=== PATIENT | male | born 1960 | race Caucasian/White ===

== ENCOUNTER 2017-01-18 15:18 | Inpatient (IN) | payer OTHER ==
[~2017-01-18] VITALS: Ht 188 cm; Wt 100.0 kg
[~2017-01-18 15:18] MED LIST changes: -CARV3.1260 PO; -COU5 PO; -FURO40TA4 PO; -LISI-313 PO; -RIVA20TA PO
[2017-01-18] MEDS ORDERED: SOD CHLORIDE 0.9% 1,000 ML IV STA (15:33)
--- NOTE | 2017-01-18 16:45 | RADRPT ---
PROCEDURE: US bilateral lower extremity veins. CLINICAL INDICATION: Bilateral leg pain and swelling. TECHNIQUE: Multiple longitudinal and transverse images of the bilateral lower extremity veins were obtained with queen scale and color Doppler imaging. The common femoral vein, femoral vein, and popl iteal vein were evaluated. 2D grayscale measurements with compression sonography, color Doppler, and pulsed Doppler with augmentation. COMPARISON: No prior studies are available for comparison. FINDINGS: The bilateral common femoral, femoral and popliteal veins are normally compressible throughout. Col or flow demonstrates normal filling of the vessels. Normal waveforms are visualized and there is no rmal response to augmentation. IMPRESSION: 1. No evidence of deep vein thrombosis involving either lower extremity. RPTAT: QQ .Guicho Ch MD, MD Date Time Electronically viewed and signed by .Guicho Ch MD, on 01/18/2017 16:44 .R/
--- NOTE | 2017-01-18 16:46 | RADRPT ---
PROCEDURE: XR Chest. CLINICAL INDICATION: Shortness of breath. TECHNIQUE: Single frontal view. COMPARISON: None. FINDINGS: There is scarring or atelectasis in the right upper lobe inferiorly. There is left basilar atelectas is or pneumonia with adjacent left pleural effusion. There is no right pleural effusion. The heart size is normal. There is no pneumothorax. IMPRESSION: 1. Scarring or atelectasis in the right upper lobe inferiorly. 2. Left basilar atelectasis or pneumonia with adjacent left pleural effusion. 3. Otherwise normal chest x-ray. RPTAT: QQ .Guicho Ch MD, MD Date Time Electronically viewed and signed by .Guicho hC MD, on 01/18/2017 16:45 .R/
--- NOTE | 2017-01-18 16:46 | RADRPT ---
PROCEDURE: XR Chest. CLINICAL INDICATION: Shortness of breath. TECHNIQUE: Single frontal view. COMPARISON: None. FINDINGS: There is scarring or atelectasis in the right upper lobe inferiorly. There is left basilar atelectas is or pneumonia with adjacent left pleural effusion. There is no right pleural effusion. The heart size is normal. There is no pneumothorax. IMPRESSION: 1. Scarring or atelectasis in the right upper lobe inferiorly. 2. Left basilar atelectasis or pneumonia with adjacent left pleural effusion. 3. Otherwise normal chest x-ray. RPTAT: QQ .Guicho Ch MD, MD Date Time Electronically viewed and signed by .Guicho Ch MD, on 01/18/2017 16:45 .R/
--- NOTE | 2017-01-18 16:49 | ERD ---
ER Documentation Chief Complaint Chief Complaint TACHYCARDIA FROM SAME DAY SURGERY. NO CP, MILD SOB NOTED. NO DIAPHORESIS HPI 56-year-old man referred to the emergency department for tachycardia he was being evaluated today for possible bilateral lower extremity arterial ischemia and has complaints of recent left knee swelling and discomfort. He states his symptoms began shortly after left total knee arthroplasty performed a few months ago. He complains of palpitations, denies chest pain or shortness of breath, no fevers or chills, no headache or blurry vision, no dizziness, no loss of consciousness, no redness to the knee. Patient states he has a remote history of atrial fibrillation but denies current medication use, denies new medications. ROS All systems reviewed and are negative except as per history of present illness. Medications Home Meds Reported Medications Aspirin (Low Dose Aspirin) 81 Mg Tablet.dr, 81 MG PO DAILY, #30 TAB 01/18/17 Allergies Allergies: Coded Allergies: No Known Allergies (Verified Allergy, Unknown, 01/18/17) PMhx/Soc ? Paroxysmal atrial fibrillation History of Surgery: Yes (LEFT KNEE SX) Anesthesia Reaction: No Hx Neurological Disorder: No Hx Respiratory Disorders: No Hx Cardiac Disorders: Yes (ARRHYTHMIA) Hx Psychiatric Problems: No Hx Miscellaneous Medical Probl: No Hx Alcohol Use: No Hx Substance Use: No Hx Tobacco Use: No Smoking Status: Never smoker FmHx Family History: No diabetes Physical Exam Vitals Vital Signs Date Time Temp Pulse Resp B/P Pulse Ox O2 Delivery O2 Flow Rate FiO2 01/18/17 15:27 98.8 140 21 114/81 98 Physical Exam GENERAL: Well-developed, well-nourished, well-hydrated, in no apparent distress , looks nontoxic in appearance HEENT: Moist mucous membranes, pink conjunctiva, no cervical spine tenderness or step-off deformities, no goiter, no jaundice or icterus, extraocular movements intact without pain. No submandibular induration, and no pharyngeal erythema NEURO: Alert and oriented 3, cranial nerves II through XII intact bilaterally, pupils equal round reactive to light, no focal deficits or facial asymmetry, sensation intact distally Strength 5/5 in upper and lower extremities bilaterally CARDIAC: Tachycardic and regular, no murmurs rubs or gallops LUNGS: Clear bilaterally no wheezing crackles or stridor ABDOMEN: Soft nontender, no guarding, no rigidity, no rebound, no psoas sign no obturator sign. Normoactive bowel sounds SKIN: Warm and dry to touch, no abrasions, contusions, or hematomas, no lacerations, no ecchymosis, no target lesions, and without ulcers EXTREMITIES: No clubbing cyanosis or edema, calves are bilaterally symmetrical, no Homans sign, no popliteal cord sign. Distal pulses equal and bilateral PSYCH: Normal affect without agitation or irritability Result Diagram: 01/18/17 1554 01/18/17 1554 Results 24 hrs Laboratory Tests Test 01/18/17 15:45 01/18/17 15:54 Thyroid Stimulating Hormone (TSH) 6.550MIU/L Free Thyroxine 2.51ng/dl Free Triiodothyronine (T3) pg/mL 4.71pg/ml White Blood Count 6.010^3/ul Red Blood Count 3.4610^6/ul Hemoglobin 12.3g/dl Hematocrit 34.4% Mean Corpuscular Volume 99.4fl Mean Corpuscular Hemoglobin 35.5pg Mean Corpuscular Hemoglobin Concent 35.8g/dl Red Cell Distribution Width 13.7% Platelet Count 80061^3/UL Mean Platelet Volume 10.2fl Neutrophils % 70.5% Lymphocytes % 20.8% Monocytes % 8.0% Eosinophils % 0.2% Basophils % 0.3% Nucleated Red Blood Cells % 0.0/100WBC Neutrophils # 4.210^3/ul Lymphocytes # 1.310^3/ul Monocytes # 0.510^3/ul Eosinophils # 0.010^3/ul Basophils # 0.010^3/ul Nucleated Red Blood Cells # 0.010^3/ul Prothrombin Time 14.6Sec Prothrombin Time Ratio 1.1 INR International Normalized Ratio 1.14 Sodium Level 127mmol/L Potassium Level 4.2mmol/L Chloride Level 93mmol/L Carbon Dioxide Level 27mmol/L Anion Gap 11 Blood Urea Nitrogen 8mg/dl Creatinine 0.88mg/dl Glucose Level 110mg/dl Calcium Level 8.3mg/dl Total Bilirubin 0.8mg/dl Direct Bilirubin 0.00mg/dl Indirect Bilirubin 0.8mg/dl Aspartate Amino Transf (AST/SGOT) 104IU/L Alanine Aminotransferase (ALT/SGPT) 47IU/L Alkaline Phosphatase 94IU/L Troponin I < 0.012ng/ml Total Protein 6.2g/dl Albumin 2.8g/dl Globulin 3.40g/dl Albumin/Globulin Ratio 0.82 Lipase 121U/L Current Medications Medications (Trade) Dose Ordered Sig/Edmond Route PRN Reason Start Time Stop Time Status Last Admin Dose Admin Sodium Chloride (NS) 1,000 ml @ 1,000 mls/hr Q1H STAT IV 01/18/17 15:33 01/18/17 16:32 DC 01/18/17 15:44 Diltiazem HCl (Cardizem Iv) 20 mg ONCE ONCE IV 01/18/17 17:00 01/18/17 17:01 DC 01/18/17 17:10 Procedures/MDM IV line was established patient was placed on quality assurance monitor body rhythm strip revealed a sinus tachycardia at 147 bpm with upright P and T waves. Patient was afebrile EKG performed, read by me revealed a sinus tachycardia at 147 bpm, left axis deviation, right ventricular conduction delay with incarceration of 118 ms, no concerning ST elevations or depressions noted. Bilateral lower extremity arterial Doppler ultrasound was performed arteries were patent, no arterial ischemia or thrombosis was noted. Please refer to radiologist dictation for full report. Bilateral lower extremity venous ultrasound was performed, no deep vein thrombosis was noted. Please refer to radiologist dictation for full report. I administered 1 L normal saline intravenously. CBC and electrolytes were normal, liver function tests were normal, troponin was negative. Continued symptomatic tachycardia and I treated him here with diltiazem 20 mg IV. Repeat EKG was performed post diltiazem therapy revealing a rate controlled 3:1 block atrial flutter at 55 bpm, left axis deviation, right ventricular conduction delay, no concerning ST elevations or depressions noted. This makes his initial EKG much more suspicious for atrial flutter with rapid ventricular rate. Critical Care: Time: 48 minutes, this was time separate from other billable procedures. Treatments/Evaluations: Close monitoring and treatment of unstable vital signs, cardiorespiratory, and neurologic status, while maintaining tight balance of fluid, respiratory, and cardiac interventions. I ordered thyroid panel, patient will be admitted to telemetry setting for continued medical management cardiology consultation. Departure Diagnosis: Primary Impression: Symptomatic tachycardia Additional Impression: Atrial flutter with rapid ventricular response Condition: AB Soto MD Jan 18, 2017 16:49
[2017-01-18] MEDS ORDERED: DILTIAZEM 25 MG INJ IV ONE (17:00)
--- NOTE | 2017-01-18 17:27 | RADRPT ---
PROCEDURE: US bilateral lower extremity arteries. CLINICAL INDICATION: Bilateral leg pain. Claudication that interferes significantly with the saran ent's lifestyle. TECHNIQUE: Multiple longitudinal and transverse images of the bilateral lower extremity arteries w ere obtained with queen scale, pulsed Doppler, and color Doppler imaging. COMPARISON: No prior studies are available for comparison. FINDINGS: Right QUALITY TECHNICIAN:114 cm/sec PSFA:71 cm/sec MSFA:106 cm/sec DSFA:79 cm/sec POP:56 cm/sec VENEER MARKER:79 cm/sec DPA:40 cm/sec Left QUALITY TECHNICIAN:149 cm/sec PSFA:73 cm/sec MSFA:89 cm/sec DSFA:58 cm/sec POP:56 cm/sec VENEER MARKER:75 cm/sec DPA:38 cm/sec The right ankle-brachial index is 1.0 and the left ankle-brachial index is 1.1. There is normal triphasic flow throughout bilaterally. IMPRESSION: 1. Normal bilateral lower extremity arterial Doppler. RPTAT: QQ .Guicho Ch MD, MD Date Time Electronically viewed and signed by .Guicho Ch MD, on 01/18/2017 17:27 .R/
--- NOTE | 2017-01-18 17:27 | RADRPT ---
PROCEDURE: US bilateral lower extremity arteries. CLINICAL INDICATION: Bilateral leg pain. Claudication that interferes significantly with the saran ent's lifestyle. TECHNIQUE: Multiple longitudinal and transverse images of the bilateral lower extremity arteries w ere obtained with queen scale, pulsed Doppler, and color Doppler imaging. COMPARISON: No prior studies are available for comparison. FINDINGS: Right WEDDING DAY COORDINATOR:114 cm/sec PSFA:71 cm/sec MSFA:106 cm/sec DSFA:79 cm/sec POP:56 cm/sec EMD SPECIAL EDUCATION TEACHER:79 cm/sec DPA:40 cm/sec Left WEDDING DAY COORDINATOR:149 cm/sec PSFA:73 cm/sec MSFA:89 cm/sec DSFA:58 cm/sec POP:56 cm/sec EMD SPECIAL EDUCATION TEACHER:75 cm/sec DPA:38 cm/sec The right ankle-brachial index is 1.0 and the left ankle-brachial index is 1.1. There is normal triphasic flow throughout bilaterally. IMPRESSION: 1. Normal bilateral lower extremity arterial Doppler. RPTAT: QQ .Guicho Ch MD, MD Date Time Electronically viewed and signed by .Guicho Ch MD, on 01/18/2017 17:27 .R/
--- NOTE | 2017-01-18 17:27 | RADRPT ---
PROCEDURE: US bilateral lower extremity arteries. CLINICAL INDICATION: Bilateral leg pain. Claudication that interferes significantly with the saran ent's lifestyle. TECHNIQUE: Multiple longitudinal and transverse images of the bilateral lower extremity arteries w ere obtained with queen scale, pulsed Doppler, and color Doppler imaging. COMPARISON: No prior studies are available for comparison. FINDINGS: Right CORPORATE SCHEDULER:114 cm/sec PSFA:71 cm/sec MSFA:106 cm/sec DSFA:79 cm/sec POP:56 cm/sec ADMISSIONS RECRUITER:79 cm/sec DPA:40 cm/sec Left CORPORATE SCHEDULER:149 cm/sec PSFA:73 cm/sec MSFA:89 cm/sec DSFA:58 cm/sec POP:56 cm/sec ADMISSIONS RECRUITER:75 cm/sec DPA:38 cm/sec The right ankle-brachial index is 1.0 and the left ankle-brachial index is 1.1. There is normal triphasic flow throughout bilaterally. IMPRESSION: 1. Normal bilateral lower extremity arterial Doppler. RPTAT: QQ .Guicho Ch MD, MD Date Time Electronically viewed and signed by .Guicho Ch MD, on 01/18/2017 17:27 .R/
--- NOTE | 2017-01-18 19:35 | HP ---
Date/Time of Note Date/Time of Note DATE: 01/18/17 TIME: 19:27 Assessment/Plan VTE Prophylaxis VTE Prophylaxis Intervention: other Assessment/Plan Chief Complaint/Hosp Course 1. A. fib with RVR-resolved status post diltiazem IV Monitor on telemetry overnight 2. Left lower extremity swelling Ultrasound arterial and venous were negative 3. EtOH abuse Cessation advised 4. Recent left total knee arthroplasty Continue aspirin for DVT prophylaxis 5. Hyponatremia IV fluids with normal saline Prophylaxis: Aspirin Problems: HPI/ROS Admit Date/Time Admit Date/Time January 18, 2017 Hx of Present Illness Patient is a 56-year-old man with history of alcohol abuse as well as recent left total knee arthroplasty, patient was at same-day surgery where he was being evaluated today for possible bilateral lower extremity arterial ischemia as he was having complaints of recent left knee swelling and discomfort. He states his symptoms began shortly after left total knee arthroplasty performed a few months ago. At same-day surgery patient reported having palpitations and was found to be in A. fib with RVR, patient was given diltiazem IV 1 and has converted to normal sinus rhythm. Patient remotes history of an arrhythmia, unclear what type. Patient denies any chest pain or shortness of breath at this time. Of note ultrasound arterial as well as venous done today were within normal. ROS Constitutional: improved, no complaints Eyes: no complaints ENT: no complaints Respiratory: no complaints Cardiovascular: no complaints Gastrointestinal: no complaints Genitourinary: no complaints Musculoskeletal: no complaints Skin: no complaints Neurologic: no complaints Endocrine: no complaints Lymphatic: no complaints Psychological: nl mood/affect, no complaints Immunologic: no complaints PMH/Family/Social Past Medical History EtOH abuse and left total knee arthroplasty Family History Significant Family History: no pertinent family hx Social History Alcohol Use: heavy Smoking Status: Former smoker Drug Use: none Exam/Review of Systems Vital Signs Vitals Vital Signs Date Time Temp Pulse Resp B/P Pulse Ox O2 Delivery O2 Flow Rate FiO2 01/18/17 15:27 98.8 140 21 114/81 98 Exam Constitutional: alert, oriented Respiratory: clear to auscultation Cardiovascular: regular rate and rhythm Gastrointestinal: soft, No distended Musculoskeletal: nl extremities to inspection Labs Result Diagram: 01/18/17 1554 01/18/17 1554 CHUCHO KATE Jan 18, 2017 19:35
[2017-01-18] MEDS ORDERED: ONDANSETRON 4 MG INJ IV PRN (20:00)
[2017-01-18] MEDS ORDERED: MAGNESIUM HYDROXIDE 30ML CUP PO PRN (20:00)
[2017-01-18] MEDS ORDERED: DOCUSATE SODIUM 100 MG CAP PO PRN (20:00)
[2017-01-18] MEDS ORDERED: NACL 0.9% 3 ML SYG IV SCH (20:00)
[2017-01-18] MEDS ORDERED: ACETAMINOPHEN 325 MG TAB PO PRN (20:00)
[2017-01-18] MEDS ORDERED: LORAZEPAM 2 MG INJ IV PRN (20:00)
[2017-01-18] MEDS ORDERED: morphine 2 MG INJ IV PRN (20:00)
[2017-01-18] MEDS ORDERED: ZOLPIDEM 5 MG TAB PO PRN (20:00)
[2017-01-18] MEDS: HYDROCODONE/APAP (5/325) TAB PO PRN (20:15)
[2017-01-18 21:00] VITALS: Ht 188 cm; Wt 100.0 kg
[2017-01-18 21:12] VITALS: PULSE 74
[2017-01-18 21:34] VITALS: BP 128/80; RESP 18
[2017-01-18] MEDS ORDERED: LEVOFLOXACIN 500MG/D5W (PMX) 100 ML IVPB SCH (22:00)
[2017-01-18] MEDS ORDERED: IPRATROPIUM (NEB) 0.5 MG/2.5 ML AMP HHN PRN (22:00)
[2017-01-18] MEDS ORDERED: HALOPERIDOL 5 MG INJ IM ONE (22:00)
[2017-01-18] MEDS: SOD CHLORIDE 0.9% 1,000 ML IV SCH (22:36)
[2017-01-19] VITALS (13 sets, daily range): BP systolic 103–128; BP diastolic 59–72; PULSE 58–140; RESP 16–20
[2017-01-19] MEDS: LEVALBUTEROL (NEB) 0.63 MG/3 ML AMP HHN SCH ×6 (01:55→20:33)
[2017-01-19] MEDS ORDERED: METOPROLOL 25 MG TAB PO SCH (02:30)
[2017-01-19] MEDS ORDERED: DILTIAZEM 25 MG INJ IV ONE (02:30)
[2017-01-19] MEDS: METOPROLOL 25 MG TAB PO SCH ×2 (02:53→10:08)
[2017-01-19] MEDS ORDERED: MAGNESIUM SULFATE 3 GM in SOD CHLORIDE 0.9% 100 ML IVPB ONE (03:30)
[2017-01-19] MEDS: SOD CHLORIDE 0.9% 1,000 ML IV SCH ×3 (05:33→21:45)
[2017-01-19] MEDS ORDERED: MAGNESIUM SULFATE 2 GM/50 ML 50 ML IVPB ONE (10:00)
[2017-01-19] MEDS: MULTIVITAMINS 10 ML, THIAMINE 100 MG, FOLIC ACID 1 MG in SOD CHLORIDE 0.9% 1,000 ML IVPB SCH (10:07)
[2017-01-19] MEDS: HYDROCODONE/APAP (5/325) TAB PO PRN ×3 (10:08→23:28)
--- NOTE | 2017-01-19 14:14 | RADRPT ---
Echocardiogram Report Patient Name: SENTHIL ARROYO Gender: Male Date: 1960 Study Date: 19-Jan-2017 Computer Service Technician: Destiny [facility] Location: 5564[address] Ref. Physician: CHUCHO KATE Quality: Adequate Procedures: Transthoracic echocardiogram with complete 2D, M-Mode, and doppler examination. Indications: A.Fib. 2D/M Mode Doppler Measurement Value Normal Ranges Measurement Value Normal Ranges LVIDd 2D 4.6 3.5 - 5.6 cm AV Peak Adrian 1.7 m/sec LVIDs 2D 3.1 2.1 - 4.1 cm AV Peak PG 11.0 mmHg FS 2D 32.2 % LVOT Peak Adrian 1.1 m/sec LVPWd 2D 1.3 0.6 - 1.1 cm LVOT Peak PG 5.0 mmHg IVSd 2D 1.3 0.6 - 1.1 cm MV E Peak Adrian 0.8 m/sec IVS/LVPW 2D 1.0 MV A Peak Adrian 0.5 m/sec AoR Diam 2D 3.4 2.0 - 3.7 cm MV E/A 1.6 LA/Ao 2D 1 0 - 1 MV Decel Time 180 msec EDV 2D 96.7 cm3 MV E/A 1.6 ESV 2D 30.1 cm3 TR Peak Adrian 2.2 m/sec LA Dimen 2D 4.1 2.3 - 4.0 cm TR Peak PG 19.0 mmHg RVSP 22.0 mmHg Findings Left Ventricle: Normal left ventricular cavity size. Mild concentric left ventricular hypertrophy. Mild global left ventricular systolic dysfunction. Ejection fraction is visually estimated at 4045 %. Abnormal Diastolic Function. Right Ventricle: Normal right ventricular size. Normal right ventricular systolic function. Left Atrium: There is moderate enlargement of left atrium. Right Atrium: The right atrium is normal in size. Mitral Valve: Mild mitral leaflet calcification. Mild mitral annular calcification. Mild mitral valve regurgitation. Aortic Valve: No significant aortic stenosis. Aortic cusps appear mildly calcified. Trace aortic valve regurgitation. Tricuspid Valve: Normal appearance of the tricuspid valve. Estimated peak PA systolic pressure 22 mmHg. There is trace tricuspid regurgitation. Pulmonic Valve: Pulmonic valve not well visualized. There is trace pulmonic regurgitation. Pericardium: Normal pericardium with no significant pericardial effusion. Aorta: Normal aortic root. IVC: Normal size and normal respiratory collapse consistent with normal right atrial pressure. Conclusions 1.The left ventricle is normal in size with mildly to moderately reduced systolic function. 2.Estimated left ventricular ejection fraction of 40-45%. There is global hypokinesis. 3.Moderate left atrial enlargement. Electronically Signed By: Jamal Nance 19-Jan-2017 14:13:32 -0700 Patient Name: SENTHIL ARROYO Study Date: 19-Jan-2017 [id number]
--- NOTE | 2017-01-19 14:14 | RADRPT ---
Echocardiogram Report Patient Name: SENTHIL ARROYO Gender: Male Date: 1960 Study Date: 19-Jan-2017 Boom Man: Destiny [facility] Location: 55[address] Ref. Physician: CHUCHO KATE Quality: Adequate Procedures: Transthoracic echocardiogram with complete 2D, M-Mode, and doppler examination. Indications: A.Fib. 2D/M Mode Doppler Measurement Value Normal Ranges Measurement Value Normal Ranges LVIDd 2D 4.6 3.5 - 5.6 cm AV Peak Adrian 1.7 m/sec LVIDs 2D 3.1 2.1 - 4.1 cm AV Peak PG 11.0 mmHg FS 2D 32.2 % LVOT Peak Adrian 1.1 m/sec LVPWd 2D 1.3 0.6 - 1.1 cm LVOT Peak PG 5.0 mmHg IVSd 2D 1.3 0.6 - 1.1 cm MV E Peak Adrian 0.8 m/sec IVS/LVPW 2D 1.0 MV A Peak Adrian 0.5 m/sec AoR Diam 2D 3.4 2.0 - 3.7 cm MV E/A 1.6 LA/Ao 2D 1 0 - 1 MV Decel Time 180 msec EDV 2D 96.7 cm3 MV E/A 1.6 ESV 2D 30.1 cm3 TR Peak Adrian 2.2 m/sec LA Dimen 2D 4.1 2.3 - 4.0 cm TR Peak PG 19.0 mmHg RVSP 22.0 mmHg Findings Left Ventricle: Normal left ventricular cavity size. Mild concentric left ventricular hypertrophy. Mild global left ventricular systolic dysfunction. Ejection fraction is visually estimated at 4045 %. Abnormal Diastolic Function. Right Ventricle: Normal right ventricular size. Normal right ventricular systolic function. Left Atrium: There is moderate enlargement of left atrium. Right Atrium: The right atrium is normal in size. Mitral Valve: Mild mitral leaflet calcification. Mild mitral annular calcification. Mild mitral valve regurgitation. Aortic Valve: No significant aortic stenosis. Aortic cusps appear mildly calcified. Trace aortic valve regurgitation. Tricuspid Valve: Normal appearance of the tricuspid valve. Estimated peak PA systolic pressure 22 mmHg. There is trace tricuspid regurgitation. Pulmonic Valve: Pulmonic valve not well visualized. There is trace pulmonic regurgitation. Pericardium: Normal pericardium with no significant pericardial effusion. Aorta: Normal aortic root. IVC: Normal size and normal respiratory collapse consistent with normal right atrial pressure. Conclusions 1.The left ventricle is normal in size with mildly to moderately reduced systolic function. 2.Estimated left ventricular ejection fraction of 40-45%. There is global hypokinesis. 3.Moderate left atrial enlargement. Electronically Signed By: Jamal Nance 19-Jan-2017 14:13:32 -0700 Patient Name: SENTHIL ARROYO Study Date: 19-Jan-2017 [id number]
--- NOTE | 2017-01-19 14:14 | RADRPT ---
Echocardiogram Report Patient Name: SENTHIL ARROYO Gender: Male Date: 1960 Study Date: 19-Jan-2017 Wire Mill Rover: Destiny [facility] Location: [address] Ref. Physician: CHUCHO KATE Quality: Adequate Procedures: Transthoracic echocardiogram with complete 2D, M-Mode, and doppler examination. Indications: A.Fib. 2D/M Mode Doppler Measurement Value Normal Ranges Measurement Value Normal Ranges LVIDd 2D 4.6 3.5 - 5.6 cm AV Peak Adrian 1.7 m/sec LVIDs 2D 3.1 2.1 - 4.1 cm AV Peak PG 11.0 mmHg FS 2D 32.2 % LVOT Peak Adrian 1.1 m/sec LVPWd 2D 1.3 0.6 - 1.1 cm LVOT Peak PG 5.0 mmHg IVSd 2D 1.3 0.6 - 1.1 cm MV E Peak Adrian 0.8 m/sec IVS/LVPW 2D 1.0 MV A Peak Adrian 0.5 m/sec AoR Diam 2D 3.4 2.0 - 3.7 cm MV E/A 1.6 LA/Ao 2D 1 0 - 1 MV Decel Time 180 msec EDV 2D 96.7 cm3 MV E/A 1.6 ESV 2D 30.1 cm3 TR Peak Adrian 2.2 m/sec LA Dimen 2D 4.1 2.3 - 4.0 cm TR Peak PG 19.0 mmHg RVSP 22.0 mmHg Findings Left Ventricle: Normal left ventricular cavity size. Mild concentric left ventricular hypertrophy. Mild global left ventricular systolic dysfunction. Ejection fraction is visually estimated at 4045 %. Abnormal Diastolic Function. Right Ventricle: Normal right ventricular size. Normal right ventricular systolic function. Left Atrium: There is moderate enlargement of left atrium. Right Atrium: The right atrium is normal in size. Mitral Valve: Mild mitral leaflet calcification. Mild mitral annular calcification. Mild mitral valve regurgitation. Aortic Valve: No significant aortic stenosis. Aortic cusps appear mildly calcified. Trace aortic valve regurgitation. Tricuspid Valve: Normal appearance of the tricuspid valve. Estimated peak PA systolic pressure 22 mmHg. There is trace tricuspid regurgitation. Pulmonic Valve: Pulmonic valve not well visualized. There is trace pulmonic regurgitation. Pericardium: Normal pericardium with no significant pericardial effusion. Aorta: Normal aortic root. IVC: Normal size and normal respiratory collapse consistent with normal right atrial pressure. Conclusions 1.The left ventricle is normal in size with mildly to moderately reduced systolic function. 2.Estimated left ventricular ejection fraction of 40-45%. There is global hypokinesis. 3.Moderate left atrial enlargement. Electronically Signed By: Jamal Nance 19-Jan-2017 14:13:32 -0700 Patient Name: SENTHIL ARROYO Study Date: 19-Jan-2017 [id number]
--- NOTE | 2017-01-19 15:22 | CONS ---
Date/Time of Note Date/Time of Note DATE: 01/19/17 TIME: 15:08 Assessment/Plan Assessment/Plan Chief Complaint/Hosp Course Assessment: Cardiomyopathy, LVEF 40-45% - new diagnosis, suspect alcoholic etiology Systolic heart failure, suspect chronic - clinically compensated Atrial fibrillation, suspect chronic - now rate controlled Alcohol abuse - advised cessation Recommendations: -CT coronary angiography to rule out ischemic etiology for cardiomyopathy -carvedilol 6.25mg BID and lisinopril 2.5mg daily for systolic heart failure, up titrate as tolerated -Xarelto 20mg daily for atrial fibrillation thromboembolic prophylaxis Problems: Consultation Date/Type/Reason Admit Date/Time January 18, 2017 Type of Consultation: Cardiology Reason for Consultation atrial fibrillation with rapid ventricular response Hx of Present Illness The patient is a 56 year-old male with history of alcohol abuse who is status post left total knee arthroplasty approximately three months ago. Since the surgery, he has noticed worsening bilateral lower extremity swelling and pain. He presented to the same-day surgery center yesterday for evaluation to rule out lower extremity arterial disease. However, he was noted to be in atrial fibrillation with rapid ventricular rates in the 140s. He deceived IV diltiazem with control of his heart rate and has subsequently been admitted to the hospital for further management. Of note, bilateral lower extremity arterial and venous Dopplers have been normal. He reports being told he had an unspecified arrhythmia in the past. He otherwise denies a history of heart disease. He reports having a normal cardiac stress test three months ago prior to his knee surgery. He currently denies any chest pain or shortness of breath. He is noted to be anemia with a hemoglobin of 10.8. He denies hematochezia, melena, or other bleeding, and reports having a normal colonoscopy two years ago. 14 point review of systems negative other than per HPI. Past Medical History Medical History: no pertinent history Past Surgical History Left total knee arthroplasty Left hip pinning Right inguinal hernia repair Bilateral cataract surgery Family History Significant Family History: no pertinent family hx Social History Alcohol Use: heavy Smoking Status: Former smoker Drug Use: none Exam/Review of Systems Vital Signs Vitals Vital Signs Date Time Temp Pulse Resp B/P Pulse Ox O2 Delivery O2 Flow Rate FiO2 01/19/17 14:31 60 18 21 01/19/17 12:06 98.6 108/69 99 Intake and Output 1001/18/17 01/19/17 15:00 23:00 07:00 Intake Total 1600 ml Balance 1600 ml Exam Constitutional: alert, well developed Psych: nl mood/affect, no complaints Head: atraumatic, normocephalic Eyes: nl conjunctiva, nl lids ENMT: nl external ears & nose, nl nasal mucosa & septum Neck: non-tender, supple Respiratory: clear to auscultation Cardiovascular: irregular rhythm Gastrointestinal: non-tender, soft Musculoskeletal: nl extremities to inspection Extremities: edema (trace to 1+ bilateral lower extremity), No clubbing, No cyanosis Neurological: nl mental status, nl speech Skin: nl turgor Results Result Diagram: 01/19/17 0755 01/19/17 0755 Results 24 hrs Laboratory Tests Test 01/18/17 15:45 01/18/17 15:54 01/19/17 07:55 Thyroid Stimulating Hormone (TSH) 6.550 H Free Thyroxine 2.51 H Free Triiodothyronine (T3) pg/mL 4.71 White Blood Count 6.0 4.8 Red Blood Count 3.46 L 3.15 L Hemoglobin 12.3 L 10.8 L Hematocrit 34.4 L 31.7 L Mean Corpuscular Volume 99.4 100.6 Mean Corpuscular Hemoglobin 35.5 H 34.3 H Mean Corpuscular Hemoglobin Concent 35.8 34.1 Red Cell Distribution Width 13.7 14.1 Platelet Count 127 L 119 L Mean Platelet Volume 10.2 10.5 H Neutrophils % 70.5 56.7 Lymphocytes % 20.8 31.8 Monocytes % 8.0 10.7 Eosinophils % 0.2 0.4 Basophils % 0.3 0.2 Nucleated Red Blood Cells % 0.0 0.0 Neutrophils # 4.2 2.7 Lymphocytes # 1.3 1.5 Monocytes # 0.5 0.5 Eosinophils # 0.0 0.0 Basophils # 0.0 0.0 Nucleated Red Blood Cells # 0.0 0.0 Prothrombin Time 14.6 H Prothrombin Time Ratio 1.1 INR International Normalized Ratio 1.14 Sodium Level 127 L 127 L Potassium Level 4.2 4.3 Chloride Level 93 L 96 L Carbon Dioxide Level 27 28 Anion Gap 11 7 L Blood Urea Nitrogen 8 8 Creatinine 0.88 0.90 Glucose Level 110 119 Calcium Level 8.3 L 8.1 L Magnesium Level 1.3 L 1.7 Total Bilirubin 0.8 1.0 Direct Bilirubin 0.00 0.00 Indirect Bilirubin 0.8 1.0 Aspartate Amino Transf (AST/SGOT) 104 H 80 H Alanine Aminotransferase (ALT/SGPT) 47 35 Alkaline Phosphatase 94 80 Troponin I < 0.012 Total Protein 6.2 5.7 L Albumin 2.8 L 2.5 L Globulin 3.40 H 3.20 Albumin/Globulin Ratio 0.82 0.78 Lipase 121 Hemoglobin A1c 4.6 Phosphorus Level 3.0 Triglycerides Level 60 Cholesterol Level 86 L LDL Cholesterol, Calculated 31 HDL Cholesterol 43 Cholesterol/HDL Ratio 2.0 Medications Medications Current Medications Sodium Chloride (NS) 1,000 ml @ 100 mls/hr Q10H IV Last administered on 22:36; Admin Dose 100 MLS/HR; Start 01/18/17 at 19:33 Ondansetron HCl (Zofran Inj) 4 mg Q6H PRN IV NAUSEA AND/OR VOMITING; Start at 20:00 Acetaminophen (Tylenol Tab) 650 mg Q6H PRN PO PAIN LEVEL 1-3 OR FEVER; Start 01/18/17 at 20:00 Acetaminophen/ Hydrocodone Bitart ([place] (5/325)) 1 tab Q6H PRN PO MODERATE PAIN LEVEL 4-6 Last administered on 01/19/17 10:08; Admin Dose 1 TAB; Start 01/18/17 at 20:00 Morphine Sulfate (morphine) 2 mg Q4H PRN IV SEVERE PAIN LEVEL 7-10 Last administered on 01/19/17 07:43; Admin Dose 2 MG; Start 01/18/17 at 20:00 Docusate Sodium (Colace) 100 mg Q12H PRN PO CONSTIPATION; Start 01/18/17 at 20 :00 Magnesium Hydroxide (Milk Of Mag) 30 ml DAILY PRN PO CONSTIPATION; Start 01/18 at 20:00 Zolpidem Tartrate (Ambien) 5 mg QHS PRN PO SLEEP; Start 01/18/17 at 20:00 Lorazepam 1 mg 1 mg Q4 PRN IV AGITATION/ANXIETY; Start 01/18/17 at 20:00 Multivitamins 10 ml/Thiamine HCl 100 mg/Folic Acid 1 mg/Sodium Chloride 1,011.2 ml @ 125 mls/ hr DAILY@09 IVPB Last administered on 01/19/17 10:07; Admin Dose 125 MLS/HR; Start 01/19/17 at 09:00 Levofloxacin/ Dextrose (Levaquin 500mg/ D5W 100 ml (Pmx)) 100 ml @ 100 mls/hr Q24H IVPB Last administered on 01/18/17 22:36; Admin Dose 100 MLS/HR; Start 01/18/17 at 22:00 Metoprolol Tartrate (Lopressor) 25 mg BID PO Last administered on 01/19/17 10 :08; Admin Dose 25 MG; Start 01/19/17 at 02:40 WOOD MARMOLEJO MD Jan 19, 2017 15:18
--- NOTE | 2017-01-19 16:26 | PN ---
Date/Time of Note Date/Time of Note DATE: 01/19/17 TIME: 16:22 Assessment/Plan VTE Prophylaxis VTE Prophylaxis Intervention: other Lines/Catheters IV C[facility] Type ([facility] Peripheral IV Assessment/Plan Chief Complaint/Hosp Course 1. Paroxysmal A. fib-rate now controlled Started on Xarelto Cardiology consultation appreciated 2. Cardiomyopathy with an EF of 40-45% likely secondary to alcohol abuse CT coronary angiogram to rule out ischemic etiology Patient started on beta-david and ROLAND inhibitor 3. Left lower extremity swelling Ultrasound arterial and venous were negative 4. EtOH abuse Cessation advised 5. Recent left total knee arthroplasty Continue aspirin for DVT prophylaxis 6. Hyponatremia IV fluids with normal saline Prophylaxis: Lovenox Problems: Subjective 24 Hr Interval Summary Constitutional: no complaints Exam/Review of Systems Vital Signs Vitals Vital Signs Date Time Temp Pulse Resp B/P Pulse Ox O2 Delivery O2 Flow Rate FiO2 01/19/17 15:42 98.6 64 18 107/70 99 01/19/17 14:31 21 Intake and Output 01/18/17 01/18/17 01/19/17 15:00 23:00 07:00 Intake Total 1600 ml Balance 1600 ml Exam Constitutional: alert, oriented Respiratory: clear to auscultation Cardiovascular: irregular rhythm Gastrointestinal: soft, No distended Musculoskeletal: nl extremities to inspection Results Result Diagram: 01/19/17 0755 01/19/17 0755 Results 24 hrs Laboratory Tests Test 01/19/17 07:55 White Blood Count 4.8 Red Blood Count 3.15 L Hemoglobin 10.8 L Hematocrit 31.7 L Mean Corpuscular Volume 100.6 Mean Corpuscular Hemoglobin 34.3 H Mean Corpuscular Hemoglobin Concent 34.1 Red Cell Distribution Width 14.1 Platelet Count 119 L Mean Platelet Volume 10.5 H Neutrophils % 56.7 Lymphocytes % 31.8 Monocytes % 10.7 Eosinophils % 0.4 Basophils % 0.2 Nucleated Red Blood Cells % 0.0 Neutrophils # 2.7 Lymphocytes # 1.5 Monocytes # 0.5 Eosinophils # 0.0 Basophils # 0.0 Nucleated Red Blood Cells # 0.0 Sodium Level 127 L Potassium Level 4.3 Chloride Level 96 L Carbon Dioxide Level 28 Anion Gap 7 L Blood Urea Nitrogen 8 Creatinine 0.90 Glucose Level 119 Hemoglobin A1c 4.6 Calcium Level 8.1 L Phosphorus Level 3.0 Magnesium Level 1.7 Total Bilirubin 1.0 Direct Bilirubin 0.00 Indirect Bilirubin 1.0 Aspartate Amino Transf (AST/SGOT) 80 H Alanine Aminotransferase (ALT/SGPT) 35 Alkaline Phosphatase 80 Total Protein 5.7 L Albumin 2.5 L Globulin 3.20 Albumin/Globulin Ratio 0.78 Triglycerides Level 60 Cholesterol Level 86 L LDL Cholesterol, Calculated 31 HDL Cholesterol 43 Cholesterol/HDL Ratio 2.0 Medications Medications Current Medications Sodium Chloride (NS) 1,000 ml @ 100 mls/hr Q10H IV Last administered on 22:36; Admin Dose 100 MLS/HR; Start 01/18/17 at 19:33 Ondansetron HCl (Zofran Inj) 4 mg Q6H PRN IV NAUSEA AND/OR VOMITING; Start at 20:00 Acetaminophen (Tylenol Tab) 650 mg Q6H PRN PO PAIN LEVEL 1-3 OR FEVER; Start 01/18/17 at 20:00 Acetaminophen/ Hydrocodone Bitart ([place] (5/325)) 1 tab Q6H PRN PO MODERATE PAIN LEVEL 4-6 Last administered on 01/19/17 10:08; Admin Dose 1 TAB; Start 01/18/17 at 20:00 Morphine Sulfate (morphine) 2 mg Q4H PRN IV SEVERE PAIN LEVEL 7-10 Last administered on 01/19/17 07:43; Admin Dose 2 MG; Start 01/18/17 at 20:00 Docusate Sodium (Colace) 100 mg Q12H PRN PO CONSTIPATION; Start 01/18/17 at 20 :00 Magnesium Hydroxide (Milk Of Mag) 30 ml DAILY PRN PO CONSTIPATION; Start 01/18 at 20:00 Zolpidem Tartrate (Ambien) 5 mg QHS PRN PO SLEEP; Start 01/18/17 at 20:00 Lorazepam 1 mg 1 mg Q4 PRN IV AGITATION/ANXIETY; Start 01/18/17 at 20:00 Multivitamins 10 ml/Thiamine HCl 100 mg/Folic Acid 1 mg/Sodium Chloride 1,011.2 ml @ 125 mls/ hr DAILY@09 IVPB Last administered on 01/19/17 10:07; Admin Dose 125 MLS/HR; Start 01/19/17 at 09:00 Levofloxacin/ Dextrose (Levaquin 500mg/ D5W 100 ml (Pmx)) 100 ml @ 100 mls/hr Q24H IVPB Last administered on 01/18/17t 22:36; Admin Dose 100 MLS/HR; Start 01/18/17 at 22:00 Carvedilol (Coreg) 6.25 mg BID PO ; Start 01/19/17 at 21:00 Lisinopril (Zestril) 2.5 mg DAILY PO ; Start 01/20/17 at 09:00 CHUCHO KATE Jan 19, 2017 16:26
[2017-01-19] MEDS: RIVAROXABAN 20 MG TABLET PO SCH (17:30)
[2017-01-20] VITALS (11 sets, daily range): BP systolic 92–109; BP diastolic 52–63; PULSE 41–64; RESP 17–19
[2017-01-20] MEDS: LEVALBUTEROL (NEB) 0.63 MG/3 ML AMP HHN SCH ×6 (00:31→20:53)
[2017-01-20] MEDS: MULTIVITAMINS 10 ML, THIAMINE 100 MG, FOLIC ACID 1 MG in SOD CHLORIDE 0.9% 1,000 ML IVPB SCH (08:31)
[2017-01-20] MEDS: HYDROCODONE/APAP (5/325) TAB PO PRN ×3 (09:08→23:12)
[2017-01-20] MEDS: LISINOPRIL 5 MG TAB PO SCH (09:10)
[2017-01-20] MEDS ORDERED: IOHEXOL 100 ML ONE (09:43)
[2017-01-20] MEDS ORDERED: IOHEXOL 350MG/ML 50 ML BTL ONE (09:43)
[2017-01-20] MEDS ORDERED: SOD CHLORIDE 0.9% 100 ML ONE (09:43)
[2017-01-20] MEDS ORDERED: NITROGLYCERIN AEROSOL (4.9 GM) ONE (10:00)
[2017-01-20] MEDS: SOD CHLORIDE 0.9% 1,000 ML IV SCH ×2 (12:03→21:27)
[2017-01-20] MEDS ORDERED: RIVA20TA PO (14:17)
[2017-01-20] MEDS ORDERED: CARV3.1260 PO (14:17)
[2017-01-20] MEDS ORDERED: LISI-313 PO (14:17)
--- NOTE | 2017-01-20 14:18 | PDOCDIS ---
Discharge Instructions CONDITION Patient Condition: Good HOME CARE INSTRUCTIONS: Diet Instructions: Reduced Sodium ACTIVITY: Activity Restrictions: No Restrictions FOLLOW UP/APPOINTMENTS Follow-up Plan FOLLOW UP WITH YOUR PRIMARY CARE PHYSICIAN IN 1-2 WEEKS, F/U WITH A COMPUTER NUMERICAL CONTROL MACHINIST CHUCHO KATE Jan 20, 2017 14:18
--- NOTE | 2017-01-20 14:18 | PDOCDIS ---
Discharge Instructions CONDITION Patient Condition: Good HOME CARE INSTRUCTIONS: Diet Instructions: Reduced Sodium ACTIVITY: Activity Restrictions: No Restrictions FOLLOW UP/APPOINTMENTS Follow-up Plan FOLLOW UP WITH YOUR PRIMARY CARE PHYSICIAN IN 1-2 WEEKS, F/U WITH A MANAGER GARAGE CHUCHO KATE Jan 20, 2017 14:18
--- NOTE | 2017-01-20 14:18 | PDOCDIS ---
Discharge Instructions CONDITION Patient Condition: Good HOME CARE INSTRUCTIONS: Diet Instructions: Reduced Sodium ACTIVITY: Activity Restrictions: No Restrictions FOLLOW UP/APPOINTMENTS Follow-up Plan FOLLOW UP WITH YOUR PRIMARY CARE PHYSICIAN IN 1-2 WEEKS, F/U WITH A RADAR OPERATOR CHUCHO KATE Jan 20, 2017 14:18
--- NOTE | 2017-01-20 16:37 | RADRPT ---
PROCEDURE: CTA of the heart and coronary arteries. CLINICAL INDICATION: Cardiomyopathy COMPARISON: No previous relevant images are available for comparison. TECHNIQUE: Multiphasic ECG-gated volumetric acquisition from the ascending aorta to the diaphragm pe rformed with intravenous contrast on a high-resolution multi detector scanner with multiphasic recon structions. Multiplanar reconstructions, three-dimensional reconstructions, as well as maximal inten sity projection images are produced and reviewed. One or more of the following dose reduction techni ques were used: Automated exposure control; Adjustment of the mA and/or kV according to patient size ; Use of iterative reconstruction technique; ECG dose modulation. CTDI = 8, 34, 69 mGy. DLP = 1586 m Gy-cm. Stenosis classification of vessels greater than 1.5 mm in diameter: None 0%, Minimal 1-24%, Mild 25- 49%, Moderate 50-69%, Severe 70-99%, Occluded 100% CONTRAST: 100 mL of Omnipaque 350 intravenously without adverse event. FINDINGS: Overall exam quality and angiographic enhancement: Excellent angiographic enhancement. Partially deg raded visualization due to motion artifact in the mid right coronary artery. Origins and course of the coronary arteries: Normal. Coronary artery system dominance pattern: Right. Total calcium score: 1604 Not fully diagnostic segments due to artifacts: Beam hardening artifact: Proximal right RCA. Motion artifact: Mid RCA. RCA: Dense partially concentric plaque obscures visualization of the proximal segment of the vessel, indeterminate degree of stenosis. Motion artifact degrades visualization of the midsegment of the v essel, indeterminate degree of stenosis. Calcified plaque in the distal segment of the vessel does n ot produce any stenosis. PLB: Small calcified plaque proximally does not produce any stenosis. PDA: Patent with no evidence of plaque. LM: Patent with no evidence of plaque. RI: Small-caliber vessel is widely patent. LAD: 70% stenosis is present 35 mm from the origin of the vessel due to noncalcified superimposed on calcified plaque just proximal to the origin of the first diagonal branch. A second 70% stenosis is present just distal to the origin of the first diagonal branch within the mid segment of the vessel . Distal segment of the vessel is widely patent Diags: Patent with no evidence of plaque. LCX: Calcified plaque in the proximal segment does not produce any stenosis. Mid and distal segments are widely patent. OMs: Largest first obtuse marginal branch demonstrates calcified plaque proximally which does not pr oduce any stenosis. Pericardium: Normal. Pericardial effusion: None. Heart size: Mild enlargement of both atria. Aortic valve: Trileaflet morphology. Normal systolic excursion. Normal diastolic coaptation. No evid ence of thickening or calcification. Mitral valve: Normal morphology. No evidence of prolapse on systolic images. No evidence of thickeni ng or calcification. Myocardial attenuation: Subtle subendocardial low attenuation changes are present within the mid and distal anterior calvillo suggestive of ischemic injury. Intracardiac enhancement: No left-sided filling defects to suggest the presence of mass or thrombus . Left atrial appendage is well opacified. Extracardiac findings: Visualized thoracic aorta: Normal caliber. No significant atherosclerotic changes. Pulmonary arteries: Normal caliber. No evidence of central filling defect. Pulmonary veins: Conventional pulmonary venous return. Lungs: Areas of suspected rounded atelectasis and linear atelectasis are partially visualized in the lung bases. Partially visualized left pleural effusion. Moderate peribronchial thickening suggestiv e of chronic small airways disease. No suspicious pulmonary nodules. Visualized mediastinum: No mass or fluid collection. No lymphadenopathy. Visualized osseous structures: Normal. Visualized upper abdomen: Moderate - severe upper abdominal ascites is partially visualized. Other findings: None. IMPRESSION: Total calcium score: 1604 Not fully diagnostic segments due to artifacts: Beam hardening artifact: Proximal right RCA. Motion artifact: Mid RCA. RCA: Dense partially concentric plaque obscures visualization of the proximal segment of the vessel, indeterminate degree of stenosis. Motion artifact degrades visualization of the midsegment of the v essel, indeterminate degree of stenosis. Calcified plaque in the distal segment of the vessel does n ot produce any stenosis. PLB: Small calcified plaque proximally does not produce any stenosis. PDA: Patent with no evidence of plaque. LM: Patent with no evidence of plaque. RI: Small-caliber vessel is widely patent. LAD: 70% stenosis is present 35 mm from the origin of the vessel due to noncalcified superimposed on calcified plaque just proximal to the origin of the first diagonal branch. A second 70% stenosis is present just distal to the origin of the first diagonal branch within the mid segment of the vessel . Distal segment of the vessel is widely patent Diags: Patent with no evidence of plaque. LCX: Calcified plaque in the proximal segment does not produce any stenosis. Mid and distal segments are widely patent. OMs: Largest first obtuse marginal branch demonstrates calcified plaque proximally which does not pr oduce any stenosis. Subtle subendocardial low attenuation changes are present within the mid and distal anterior calvillo s uggestive of ischemic injury. Areas of suspected rounded atelectasis and linear atelectasis are partially visualized in the lung b ases. Partially visualized left pleural effusion. Moderate peribronchial thickening suggestive of ch ronic small airways disease. CT scan of the chest is recommended for further evaluation. Moderate - severe upper abdominal ascites is partially visualized. Recommend CT scan of the abdomen and pelvis for further evaluation. RPTAT: AADD .Shelton Frederick MD, MD Date Time Electronically viewed and signed by .Shelton Frederick MD, on 01/20/2017 16:36 .B/
[2017-01-20] MEDS: RIVAROXABAN 20 MG TABLET PO SCH (17:29)
--- NOTE | 2017-01-20 18:57 | CONS ---
Date/Time of Note Date/Time of Note DATE: 01/20/17 TIME: 18:54 Assessment/Plan Assessment/Plan Chief Complaint/Hosp Course Assessment: Cardiomyopathy, LVEF 40-45% - new diagnosis, ischemic vs alcoholic etiology, oronary CTA showed plaquing in all three coronary arteries (evaluation of severity somewhat limited by artifact) Systolic heart failure, suspect chronic - clinically compensated Atrial fibrillation, suspect chronic - now rate controlled Alcohol abuse - advised cessation Recommendations: -plan for coronary angiography -continue carvedilol 6.25mg BID and lisinopril 2.5mg daily for systolic heart failure, up titrate as tolerated -start aspirin 81mg daily -hold Xarelto, resume after coronary angiography Problems: Consultation Date/Type/Reason Admit Date/Time Jan 18, 2017 at 18:34 Initial Consult Date Type of Consultation: Cardiology 24 HR Interval Summary Free Text/Dictation No chest pain or shortness of breath. Rate controlled atrial fibrillation. Coronary CTA showed plaquing in all three coronary arteries (evaluation of severity somewhat limited by artifact). Exam/Review of Systems Vital Signs Vitals Vital Signs Date Time Temp Pulse Resp B/P Pulse Ox O2 Delivery O2 Flow Rate FiO2 01/20/17 16:50 67 20 96 21 01/20/17 16:04 97.9 100/60 Intake and Output 01/19/17 01/19/17 01/20/17 15:00 23:00 07:00 Intake Total 2100 ml Balance 2100 ml Exam Constitutional: alert, well developed Psych: nl mood/affect, no complaints Head: atraumatic, normocephalic Eyes: nl conjunctiva, nl lids ENMT: nl external ears & nose, nl nasal mucosa & septum Neck: non-tender, supple Respiratory: clear to auscultation Cardiovascular: irregular rhythm Gastrointestinal: non-tender, soft Musculoskeletal: nl extremities to inspection Extremities: edema (trace to 1+ bilateral lower extremity), No clubbing, No cyanosis Neurological: nl mental status, nl speech Skin: nl turgor Results Result Diagram: 01/20/17 0845 01/20/17 0845 Results 24 hrs Laboratory Tests Test 01/20/17 08:45 White Blood Count 4.5 L Red Blood Count 3.16 L Hemoglobin 10.9 L Hematocrit 32.2 L Mean Corpuscular Volume 101.9 H Mean Corpuscular Hemoglobin 34.5 H Mean Corpuscular Hemoglobin Concent 33.9 Red Cell Distribution Width 14.4 Platelet Count 136 L Mean Platelet Volume 10.5 H Neutrophils % 52.4 Lymphocytes % 33.8 Monocytes % 12.1 H Eosinophils % 0.9 Basophils % 0.4 Nucleated Red Blood Cells % 0.0 Neutrophils # 2.3 Lymphocytes # 1.5 Monocytes # 0.5 Eosinophils # 0.0 Basophils # 0.0 Nucleated Red Blood Cells # 0.0 Sodium Level 130 L Potassium Level 3.7 Chloride Level 98 Carbon Dioxide Level 23 Anion Gap 13 Blood Urea Nitrogen 8 Creatinine 0.90 Glucose Level 100 Calcium Level 7.5 L Magnesium Level 2.1 Medications Medications Current Medications Sodium Chloride (NS) 1,000 ml @ 100 mls/hr Q10H IV Last administered on 12:03; Admin Dose 100 MLS/HR; Start 01/18/17 at 19:33 Ondansetron HCl (Zofran Inj) 4 mg Q6H PRN IV NAUSEA AND/OR VOMITING; Start at 20:00 Acetaminophen (Tylenol Tab) 650 mg Q6H PRN PO PAIN LEVEL 1-3 OR FEVER; Start 01/18/17 at 20:00 Acetaminophen/ Hydrocodone Bitart ([place] (5/325)) 1 tab Q6H PRN PO MODERATE PAIN LEVEL 4-6 Last administered on 01/20/17 16:23; Admin Dose 1 TAB; Start 01/18/17 at 20:00 Morphine Sulfate (morphine) 2 mg Q4H PRN IV SEVERE PAIN LEVEL 7-10 Last administered on 01/19/17 07:43; Admin Dose 2 MG; Start 01/18/17 at 20:00 Docusate Sodium (Colace) 100 mg Q12H PRN PO CONSTIPATION; Start 01/18/17 at 20 :00 Magnesium Hydroxide (Milk Of Mag) 30 ml DAILY PRN PO CONSTIPATION; Start 01/18 at 20:00 Zolpidem Tartrate (Ambien) 5 mg QHS PRN PO SLEEP; Start 01/18/17 at 20:00 Lorazepam 1 mg 1 mg Q4 PRN IV AGITATION/ANXIETY; Start 01/18/17 at 20:00 Multivitamins/ Thiamine HCl/ Folic Acid/Sodium Chloride (Mvi Adult/ Vitamin B1/ Folic Acid/NS) 1,011.2 ml @ 125 mls/ hr DAILY@ IVPB Last administered on 08:31; Admin Dose 125 MLS/HR; Start 01/19/17 at 09:00 Carvedilol (Coreg) 6.25 mg BID PO Last administered on 01/20/17 09:11; Admin Dose 6.25 MG; Start 01/19/17 at 21:00 Lisinopril (Zestril) 2.5 mg DAILY PO Last administered on 01/20/17 09:10; Admin Dose 2.5 MG; Start 01/20/17 at 09:00 WOOD MARMOLEJO MD Jan 20, 2017 18:57
[2017-01-21] VITALS (13 sets, daily range): BP systolic 85–120; BP diastolic 46–62; PULSE 30–65; RESP 17–18
[2017-01-21] MEDS: LEVALBUTEROL (NEB) 0.63 MG/3 ML AMP HHN SCH ×6 (01:41→21:05)
[2017-01-21] MEDS ORDERED: SOD CHLORIDE 0.9% 500 ML IV ONE (04:30)
[2017-01-21] MEDS: SOD CHLORIDE 0.9% 1,000 ML IV SCH ×2 (06:56→17:57)
[2017-01-21] MEDS: LISINOPRIL 5 MG TAB PO SCH (09:00)
[2017-01-21] MEDS: ASPIRIN (EC) 81 MG TAB PO SCH (09:50)
[2017-01-21] MEDS: MULTIVITAMINS 10 ML, THIAMINE 100 MG in SOD CHLORIDE 0.9% 1,000 ML IVPB SCH (09:50)
[2017-01-21] MEDS: HYDROCODONE/APAP (5/325) TAB PO PRN ×2 (10:26→18:10)
--- NOTE | 2017-01-21 15:00 | PN ---
Date/Time of Note Date/Time of Note DATE: 01/21/17 TIME: 14:47 Assessment/Plan VTE Prophylaxis VTE Prophylaxis Intervention: other Lines/Catheters IV Catheter Type (from Nrs): Peripheral IV Urinary Cath still in place: No Assessment/Plan Assessment/Plan 1. Congestive heart failure, acute on chronic, systoli LVEF 40-45%, coreg/ lisinopril, lasix 2. Dilated cardiomyopathy, alcoholic, tachycardia-related versus ischemic, coronary angiogram tomorrow 3. Atrial fibrillation, suspect chronic - now rate controlled, xarelto held for [facility] 4. Alcohol abuse - advised cessation 5. Recent left total knee replacement Subjective 24 Hr Interval Summary Free Text/Dictation no chest pain some shortness of breath Exam/Review of Systems Vital Signs Vitals Vital Signs Date Time Temp Pulse Resp B/P Pulse Ox O2 Delivery O2 Flow Rate FiO2 01/21/17 12:10 62 01/21/17 11:59 20 98 21 01/21/17 11:54 98.1 117/62 Intake and Output 01/20/17 01/20/17 01/21/17 15:00 23:00 07:00 Intake Total 1950 ml 1000 ml Output Total 600 ml Balance 1350 ml 1000 ml Exam Constitutional: alert, oriented, well developed Psych: nl mood/affect, no complaints Head: atraumatic, normocephalic Eyes: EOMI, PERRL, nl conjunctiva, nl lids ENMT: nl external ears & nose, nl lips & teeth, nl nasal mucosa & septum Neck: non-tender, supple Respiratory: clear to auscultation, normal air movement, No congested cough, No crackles/rales, No diminished breath sounds, No intercostal retraction, No labored breathing, No other, No respirations, No tactile fremitus, No wheezing Cardiovascular: irregular rhythm Gastrointestinal: nl liver, spleen, non-tender, soft Musculoskeletal: nl extremities to inspection Extremities: edema, normal pulses Neurological: STAMP PRESSER II-XII intact, nl mental status, nl speech, nl strength Results Result Diagram: 01/20/17 0845 01/20/17 0845 Medications Medications Current Medications Sodium Chloride (NS) 1,000 ml @ 100 mls/hr Q10H IV Last administered on t 06:56; Admin Dose 100 MLS/HR; Start 01/18/17 at 19:33 Ondansetron HCl (Zofran Inj) 4 mg Q6H PRN IV NAUSEA AND/OR VOMITING; Start at 20:00 Acetaminophen (Tylenol Tab) 650 mg Q6H PRN PO PAIN LEVEL 1-3 OR FEVER; Start 01/18/17 at 20:00 Acetaminophen/ Hydrocodone Bitart ([place] (5/325)) 1 tab Q6H PRN PO MODERATE PAIN LEVEL 4-6 Last administered on 01/21/17 10:26; Admin Dose 1 TAB; Start 01/18/17 at 20:00 Morphine Sulfate (morphine) 2 mg Q4H PRN IV SEVERE PAIN LEVEL 7-10 Last administered on 01/19/17 07:43; Admin Dose 2 MG; Start 01/18/17 at 20:00 Docusate Sodium (Colace) 100 mg Q12H PRN PO CONSTIPATION; Start 01/18/17 at 20 :00 Magnesium Hydroxide (Milk Of Mag) 30 ml DAILY PRN PO CONSTIPATION; Start 01/18 at 20:00 Zolpidem Tartrate (Ambien) 5 mg QHS PRN PO SLEEP; Start 01/18/17 at 20:00 Lorazepam (Ativan) 1 mg Q4 PRN IV AGITATION/ANXIETY; Start 01/18/17 at 20:00 Carvedilol (Coreg) 6.25 mg BID PO Last administered on 01/20/17 21:25; Admin Dose 6.25 MG; Start 01/19/17 at 21:00 Lisinopril (Zestril) 2.5 mg DAILY PO Last administered on 01/20/17 09:10; Admin Dose 2.5 MG; Start 01/20/17 at 09:00 Aspirin 81 mg 81 mg DAILY PO Last administered on 01/21/17 09:50; Admin Dose 81 MG; Start 01/21/17 at 09:00 Multivitamins/ Thiamine HCl/ Sodium Chloride (Mvi Adult/ Vitamin B1/NS) 1,011 ml @ 125 mls/hr DAILY@09 IVPB Last administered on 01/21/17 09:50; Admin Dose 125 MLS/HR; Start 01/21/17 at 08:35 DAVID STOUT MD Jan 21, 2017 14:58
--- NOTE | 2017-01-21 15:00 | PN ---
Date/Time of Note Date/Time of Note DATE: 01/21/17 TIME: 14:47 Assessment/Plan VTE Prophylaxis VTE Prophylaxis Intervention: other Lines/Catheters IV Catheter Type (from Nrs): Peripheral IV Urinary Cath still in place: No Assessment/Plan Assessment/Plan 1. Congestive heart failure, acute on chronic, systoli LVEF 40-45%, coreg/ lisinopril, lasix 2. Dilated cardiomyopathy, alcoholic, tachycardia-related versus ischemic, coronary angiogram tomorrow 3. Atrial fibrillation, suspect chronic - now rate controlled, xarelto held for [facility] 4. Alcohol abuse - advised cessation 5. Recent left total knee replacement Subjective 24 Hr Interval Summary Free Text/Dictation no chest pain some shortness of breath Exam/Review of Systems Vital Signs Vitals Vital Signs Date Time Temp Pulse Resp B/P Pulse Ox O2 Delivery O2 Flow Rate FiO2 01/21/17 12:10 62 01/21/17 11:59 20 98 21 01/21/17 11:54 98.1 117/62 Intake and Output 01/20/17 01/20/17 01/21/17 15:00 23:00 07:00 Intake Total 1950 ml 1000 ml Output Total 600 ml Balance 1350 ml 1000 ml Exam Constitutional: alert, oriented, well developed Psych: nl mood/affect, no complaints Head: atraumatic, normocephalic Eyes: EOMI, PERRL, nl conjunctiva, nl lids ENMT: nl external ears & nose, nl lips & teeth, nl nasal mucosa & septum Neck: non-tender, supple Respiratory: clear to auscultation, normal air movement, No congested cough, No crackles/rales, No diminished breath sounds, No intercostal retraction, No labored breathing, No other, No respirations, No tactile fremitus, No wheezing Cardiovascular: irregular rhythm Gastrointestinal: nl liver, spleen, non-tender, soft Musculoskeletal: nl extremities to inspection Extremities: edema, normal pulses Neurological: MACHINE TOOL TECHNOLOGY INSTRUCTOR II-XII intact, nl mental status, nl speech, nl strength Results Result Diagram: 01/20/17 0845 01/20/17 0845 Medications Medications Current Medications Sodium Chloride (NS) 1,000 ml @ 100 mls/hr Q10H IV Last administered on t 06:56; Admin Dose 100 MLS/HR; Start 01/18/17 at 19:33 Ondansetron HCl (Zofran Inj) 4 mg Q6H PRN IV NAUSEA AND/OR VOMITING; Start at 20:00 Acetaminophen (Tylenol Tab) 650 mg Q6H PRN PO PAIN LEVEL 1-3 OR FEVER; Start 01/18/17 at 20:00 Acetaminophen/ Hydrocodone Bitart ([place] (5/325)) 1 tab Q6H PRN PO MODERATE PAIN LEVEL 4-6 Last administered on 01/21/17 10:26; Admin Dose 1 TAB; Start 01/18/17 at 20:00 Morphine Sulfate (morphine) 2 mg Q4H PRN IV SEVERE PAIN LEVEL 7-10 Last administered on 01/19/17 07:43; Admin Dose 2 MG; Start 01/18/17 at 20:00 Docusate Sodium (Colace) 100 mg Q12H PRN PO CONSTIPATION; Start 01/18/17 at 20 :00 Magnesium Hydroxide (Milk Of Mag) 30 ml DAILY PRN PO CONSTIPATION; Start 01/18 at 20:00 Zolpidem Tartrate (Ambien) 5 mg QHS PRN PO SLEEP; Start 01/18/17 at 20:00 Lorazepam (Ativan) 1 mg Q4 PRN IV AGITATION/ANXIETY; Start 01/18/17 at 20:00 Carvedilol (Coreg) 6.25 mg BID PO Last administered on 01/20/17 21:25; Admin Dose 6.25 MG; Start 01/19/17 at 21:00 Lisinopril (Zestril) 2.5 mg DAILY PO Last administered on 01/20/17 09:10; Admin Dose 2.5 MG; Start 01/20/17 at 09:00 Aspirin 81 mg 81 mg DAILY PO Last administered on 01/21/17 09:50; Admin Dose 81 MG; Start 01/21/17 at 09:00 Multivitamins/ Thiamine HCl/ Sodium Chloride (Mvi Adult/ Vitamin B1/NS) 1,011 ml @ 125 mls/hr DAILY@09 IVPB Last administered on 01/21/17 09:50; Admin Dose 125 MLS/HR; Start 01/21/17 at 08:35 DAVID STOUT MD Jan 21, 2017 14:58
--- NOTE | 2017-01-21 15:00 | PN ---
Date/Time of Note Date/Time of Note DATE: 01/21/17 TIME: 14:47 Assessment/Plan VTE Prophylaxis VTE Prophylaxis Intervention: other Lines/Catheters IV Catheter Type (from Nrs): Peripheral IV Urinary Cath still in place: No Assessment/Plan Assessment/Plan 1. Congestive heart failure, acute on chronic, systoli LVEF 40-45%, coreg/ lisinopril, lasix 2. Dilated cardiomyopathy, alcoholic, tachycardia-related versus ischemic, coronary angiogram tomorrow 3. Atrial fibrillation, suspect chronic - now rate controlled, xarelto held for [facility] 4. Alcohol abuse - advised cessation 5. Recent left total knee replacement Subjective 24 Hr Interval Summary Free Text/Dictation no chest pain some shortness of breath Exam/Review of Systems Vital Signs Vitals Vital Signs Date Time Temp Pulse Resp B/P Pulse Ox O2 Delivery O2 Flow Rate FiO2 01/21/17 12:10 62 01/21/17 11:59 20 98 21 01/21/17 11:54 98.1 117/62 Intake and Output 01/20/17 01/20/17 01/21/17 15:00 23:00 07:00 Intake Total 1950 ml 1000 ml Output Total 600 ml Balance 1350 ml 1000 ml Exam Constitutional: alert, oriented, well developed Psych: nl mood/affect, no complaints Head: atraumatic, normocephalic Eyes: EOMI, PERRL, nl conjunctiva, nl lids ENMT: nl external ears & nose, nl lips & teeth, nl nasal mucosa & septum Neck: non-tender, supple Respiratory: clear to auscultation, normal air movement, No congested cough, No crackles/rales, No diminished breath sounds, No intercostal retraction, No labored breathing, No other, No respirations, No tactile fremitus, No wheezing Cardiovascular: irregular rhythm Gastrointestinal: nl liver, spleen, non-tender, soft Musculoskeletal: nl extremities to inspection Extremities: edema, normal pulses Neurological: LITIGATION SECRETARY II-XII intact, nl mental status, nl speech, nl strength Results Result Diagram: 01/20/17 0845 01/20/17 0845 Medications Medications Current Medications Sodium Chloride (NS) 1,000 ml @ 100 mls/hr Q10H IV Last administered on t 06:56; Admin Dose 100 MLS/HR; Start 01/18/17 at 19:33 Ondansetron HCl (Zofran Inj) 4 mg Q6H PRN IV NAUSEA AND/OR VOMITING; Start at 20:00 Acetaminophen (Tylenol Tab) 650 mg Q6H PRN PO PAIN LEVEL 1-3 OR FEVER; Start 01/18/17 at 20:00 Acetaminophen/ Hydrocodone Bitart ([place] (5/325)) 1 tab Q6H PRN PO MODERATE PAIN LEVEL 4-6 Last administered on 01/21/17 10:26; Admin Dose 1 TAB; Start 01/18/17 at 20:00 Morphine Sulfate (morphine) 2 mg Q4H PRN IV SEVERE PAIN LEVEL 7-10 Last administered on 01/19/17 07:43; Admin Dose 2 MG; Start 01/18/17 at 20:00 Docusate Sodium (Colace) 100 mg Q12H PRN PO CONSTIPATION; Start 01/18/17 at 20 :00 Magnesium Hydroxide (Milk Of Mag) 30 ml DAILY PRN PO CONSTIPATION; Start 01/18 at 20:00 Zolpidem Tartrate (Ambien) 5 mg QHS PRN PO SLEEP; Start 01/18/17 at 20:00 Lorazepam (Ativan) 1 mg Q4 PRN IV AGITATION/ANXIETY; Start 01/18/17 at 20:00 Carvedilol (Coreg) 6.25 mg BID PO Last administered on 01/20/17 21:25; Admin Dose 6.25 MG; Start 01/19/17 at 21:00 Lisinopril (Zestril) 2.5 mg DAILY PO Last administered on 01/20/17 09:10; Admin Dose 2.5 MG; Start 01/20/17 at 09:00 Aspirin 81 mg 81 mg DAILY PO Last administered on 01/21/17 09:50; Admin Dose 81 MG; Start 01/21/17 at 09:00 Multivitamins/ Thiamine HCl/ Sodium Chloride (Mvi Adult/ Vitamin B1/NS) 1,011 ml @ 125 mls/hr DAILY@09 IVPB Last administered on 01/21/17 09:50; Admin Dose 125 MLS/HR; Start 01/21/17 at 08:35 DAVID STOUT MD Jan 21, 2017 14:58
--- NOTE | 2017-01-21 16:06 | CONS ---
Date/Time of Note Date/Time of Note DATE: 01/21/17 TIME: 16:03 Assessment/Plan Assessment/Plan Chief Complaint/Hosp Course Assessment: Cardiomyopathy, LVEF 40-45% - new diagnosis, ischemic vs alcoholic etiology, coronary CTA showed plaquing in all three coronary arteries (evaluation of severity somewhat limited by artifact) Systolic heart failure, suspect chronic - clinically compensated Atrial fibrillation, suspect chronic - now rate controlled with ~ 4 second pauses Alcohol abuse - advised cessation Recommendations: -coronary angiography tomorrow morning -decrease carvedilol to 3.125mg BID -continue lisinopril 2.5mg daily -continue aspirin 81mg daily -start on warfarin after coronary angiography (novel anticoagulants non- formulary for patient's insurance) Problems: Consultation Date/Type/Reason Admit Date/Time Jan 18, 2017 at 18:34 Type of Consultation: Cardiology 24 HR Interval Summary Free Text/Dictation Remains in atrial fibrillation. Had two episodes of ~4 second pauses, patient asymptomatic. Detailed Summary Additional Comments 14 point review of systems without changes. Exam/Review of Systems Vital Signs Vitals Vital Signs Date Time Temp Pulse Resp B/P Pulse Ox O2 Delivery O2 Flow Rate FiO2 01/21/17 15:45 98.3 61 18 111/58 100 01/21/17 11:59 21 Intake and Output 01/20/17 01/20/17 01/21/17 15:00 23:00 07:00 Intake Total 1950 ml 1000 ml Output Total 600 ml Balance 1350 ml 1000 ml Exam Constitutional: alert, well developed Psych: nl mood/affect, no complaints Head: atraumatic, normocephalic Eyes: nl conjunctiva, nl lids ENMT: nl external ears & nose, nl nasal mucosa & septum Neck: non-tender, supple Respiratory: clear to auscultation Cardiovascular: irregular rhythm Gastrointestinal: non-tender, soft Musculoskeletal: nl extremities to inspection Extremities: edema (trace to 1+ bilateral lower extremity), No clubbing, No cyanosis Neurological: nl mental status, nl speech Skin: nl turgor Results Result Diagram: 01/20/1745 01/20/1745 Medications Medications Current Medications Sodium Chloride (NS) 1,000 ml @ 100 mls/hr Q10H IV Last administered on t 06:56; Admin Dose 100 MLS/HR; Start 01/18/17 at 19:33 Ondansetron HCl (Zofran Inj) 4 mg Q6H PRN IV NAUSEA AND/OR VOMITING; Start at 20:00 Acetaminophen (Tylenol Tab) 650 mg Q6H PRN PO PAIN LEVEL 1-3 OR FEVER; Start 01/18/17 at 20:00 Acetaminophen/ Hydrocodone Bitart ([place] (5/325)) 1 tab Q6H PRN PO MODERATE PAIN LEVEL 4-6 Last administered on 01/21/17 10:26; Admin Dose 1 TAB; Start 01/18/17 at 20:00 Morphine Sulfate (morphine) 2 mg Q4H PRN IV SEVERE PAIN LEVEL 7-10 Last administered on 01/19/17 07:43; Admin Dose 2 MG; Start 01/18/17 at 20:00 Docusate Sodium (Colace) 100 mg Q12H PRN PO CONSTIPATION; Start 01/18/17 at 20 :00 Magnesium Hydroxide (Milk Of Mag) 30 ml DAILY PRN PO CONSTIPATION; Start 01/18 at 20:00 Zolpidem Tartrate (Ambien) 5 mg QHS PRN PO SLEEP; Start 01/18/17 at 20:00 Lorazepam (Ativan) 1 mg Q4 PRN IV AGITATION/ANXIETY; Start 01/18/17 at 20:00 Carvedilol (Coreg) 6.25 mg BID PO Last administered on 01/20/17 21:25; Admin Dose 6.25 MG; Start 01/19/17 at 21:00 Lisinopril (Zestril) 2.5 mg DAILY PO Last administered on 01/20/17 09:10; Admin Dose 2.5 MG; Start 01/20/17 at 09:00 Aspirin 81 mg 81 mg DAILY PO Last administered on 01/21/17 09:50; Admin Dose 81 MG; Start 01/21/17 at 09:00 Multivitamins/ Thiamine HCl/ Sodium Chloride (Mvi Adult/ Vitamin B1/NS) 1,011 ml @ 125 mls/hr DAILY@09 IVPB Last administered on 01/21/17 09:50; Admin Dose 125 MLS/HR; Start 01/21/17 at 08:35 Potassium Chloride (Klor-Con 10) 10 meq DAILY PO ; Start 01/21/17 at 15:00 WOOD MARMOLEJO MD Jan 21, 2017 16:06
[2017-01-21] MEDS: POTASSIUM CHLORIDE (SR) 10 MEQ TAB PO SCH (18:01)
[2017-01-21] MEDS: FUROSEMIDE 20 MG INJ IV SCH (18:02)
--- NOTE | 2017-01-21 18:04 | PN ---
Date/Time of Note Date/Time of Note DATE: 01/20/17 TIME: 18:03 Assessment/Plan VTE Prophylaxis VTE Prophylaxis Intervention: other Lines/Catheters IV Catheter Type (from Nrs): Peripheral IV Urinary Cath still in place: No Assessment/Plan Chief Complaint/Hosp Course 1. Paroxysmal A. fib-rate now controlled Started on Xarelto Cardiology consultation appreciated 2. Cardiomyopathy with an EF of 40-45% likely secondary to alcohol abuse CT coronary angiogram to rule out ischemic etiology, results pending Patient started on beta-david and ROLAND inhibitor 3. Left lower extremity swelling Ultrasound arterial and venous were negative 4. EtOH abuse Cessation advised 5. Recent left total knee arthroplasty Continue aspirin for DVT prophylaxis 6. Hyponatremia IV fluids with normal saline Prophylaxis: Lovenox Problems: Subjective 24 Hr Interval Summary Free Text/Dictation Late entry for 01/20/17 Constitutional: no complaints Exam/Review of Systems Vital Signs Vitals Vital Signs Date Time Temp Pulse Resp B/P Pulse Ox O2 Delivery O2 Flow Rate FiO2 01/21/17 16:39 67 20 97 21 01/21/17 15:45 98.3 111/58 Intake and Output 01/20/17 01/20/17 01/21/17 15:00 23:00 07:00 Intake Total 1950 ml 1000 ml Output Total 600 ml Balance 1350 ml 1000 ml Exam Constitutional: alert, oriented Respiratory: clear to auscultation Cardiovascular: irregular rhythm Gastrointestinal: soft, No distended Musculoskeletal: nl extremities to inspection Results Result Diagram: 01/20/17 0845 01/20/17 0845 Medications Medications Current Medications Sodium Chloride (NS) 1,000 ml @ 100 mls/hr Q10H IV Last administered on 17:57; Admin Dose 100 MLS/HR; Start 01/18/17 at 19:33 Ondansetron HCl (Zofran Inj) 4 mg Q6H PRN IV NAUSEA AND/OR VOMITING; Start at 20:00 Acetaminophen (Tylenol Tab) 650 mg Q6H PRN PO PAIN LEVEL 1-3 OR FEVER; Start 01/18/17 at 20:00 Acetaminophen/ Hydrocodone Bitart ([place] (5/325)) 1 tab Q6H PRN PO MODERATE PAIN LEVEL 4-6 Last administered on 01/21/17 10:26; Admin Dose 1 TAB; Start 01/18/17 at 20:00 Morphine Sulfate (morphine) 2 mg Q4H PRN IV SEVERE PAIN LEVEL 7-10 Last administered on 01/19/17 07:43; Admin Dose 2 MG; Start 01/18/17 at 20:00 Docusate Sodium (Colace) 100 mg Q12H PRN PO CONSTIPATION; Start 01/18/17 at 20 :00 Magnesium Hydroxide (Milk Of Mag) 30 ml DAILY PRN PO CONSTIPATION; Start 01/18 at 20:00 Zolpidem Tartrate (Ambien) 5 mg QHS PRN PO SLEEP; Start 01/18/17 at 20:00 Lorazepam (Ativan) 1 mg Q4 PRN IV AGITATION/ANXIETY; Start 01/18/17 at 20:00 Lisinopril (Zestril) 2.5 mg DAILY PO Last administered on 01/20/17 09:10; Admin Dose 2.5 MG; Start 01/20/17 at 09:00 Aspirin 81 mg 81 mg DAILY PO Last administered on 01/21/17 09:50; Admin Dose 81 MG; Start 01/21/17 at 09:00 Multivitamins/ Thiamine HCl/ Sodium Chloride (Mvi Adult/ Vitamin B1/NS) 1,011 ml @ 125 mls/hr DAILY@09 IVPB Last administered on 01/21/17 09:50; Admin Dose 125 MLS/HR; Start 01/21/17 at 08:35 Potassium Chloride (Klor-Con 10) 10 meq DAILY PO ; Start 01/21/17 at 15:00 Carvedilol 3.125 mg 3.125 mg BID PO ; Start 01/21/17 at 21:00 Sodium Chloride (NS) 1,000 ml @ 75 mls/hr [id number] IV ; Start 01/22/17 at 00:00 CHUCHO KATE Jan 21, 2017 18:04
--- NOTE | 2017-01-21 18:10 | PN ---
Date/Time of Note Date/Time of Note DATE: 01/21/17 TIME: 18:04 Assessment/Plan VTE Prophylaxis VTE Prophylaxis Intervention: other Lines/Catheters IV Catheter Type (from Nrs): Peripheral IV Urinary Cath still in place: No Assessment/Plan Chief Complaint/Hosp Course 1. Paroxysmal A. fib-rate now controlled Patient will be started on Coumadin after heart cath as patient's insurance does not cover novel anticoagulants Cardiology consultation appreciated 2. Cardiomyopathy with an EF of 40-45% likely secondary to alcohol abuse CT coronary angiogram shows 70% stenosis in the LAD, plan is for heart cath tomorrow Beta-david and ROLAND inhibitor held secondary to hypotension 3. Cardiac pause 2 Patient had 2 pauses overnight, duration of pauses was approximately 4 seconds Follow-up with cardiology recommendations, monitor on telemetry 4. EtOH abuse Cessation advised 5. Recent left total knee arthroplasty Continue aspirin for DVT prophylaxis 6. Hyponatremia-improved IV fluids with normal saline 7. Left lower extremity swelling Ultrasound arterial and venous were negative Prophylaxis: Xarelto then will be Coumadin after heart cath Problems: Subjective 24 Hr Interval Summary Constitutional: no complaints Exam/Review of Systems Vital Signs Vitals Vital Signs Date Time Temp Pulse Resp B/P Pulse Ox O2 Delivery O2 Flow Rate FiO2 01/21/17 16:39 67 20 97 21 01/21/17 15:45 98.3 111/58 Intake and Output 01/20/17 01/20/17 01/21/17 15:00 23:00 07:00 Intake Total 1950 ml 1000 ml Output Total 600 ml Balance 1350 ml 1000 ml Exam Constitutional: alert, oriented Respiratory: clear to auscultation Cardiovascular: irregular rhythm Gastrointestinal: soft, No distended Musculoskeletal: nl extremities to inspection Results Result Diagram: 01/20/17 0845 01/20/17 0845 Medications Medications Current Medications Sodium Chloride (NS) 1,000 ml @ 100 mls/hr Q10H IV Last administered on t 17:57; Admin Dose 100 MLS/HR; Start 01/18/17 at 19:33 Ondansetron HCl (Zofran Inj) 4 mg Q6H PRN IV NAUSEA AND/OR VOMITING; Start at 20:00 Acetaminophen (Tylenol Tab) 650 mg Q6H PRN PO PAIN LEVEL 1-3 OR FEVER; Start 01/18/17 at 20:00 Acetaminophen/ Hydrocodone Bitart ([place] (5/325)) 1 tab Q6H PRN PO MODERATE PAIN LEVEL 4-6 Last administered on 01/21/17 10:26; Admin Dose 1 TAB; Start 01/18/17 at 20:00 Morphine Sulfate (morphine) 2 mg Q4H PRN IV SEVERE PAIN LEVEL 7-10 Last administered on 01/19/17 07:43; Admin Dose 2 MG; Start 01/18/17 at 20:00 Docusate Sodium (Colace) 100 mg Q12H PRN PO CONSTIPATION; Start 01/18/17 at 20 :00 Magnesium Hydroxide (Milk Of Mag) 30 ml DAILY PRN PO CONSTIPATION; Start 01/18 at 20:00 Zolpidem Tartrate (Ambien) 5 mg QHS PRN PO SLEEP; Start 01/18/17 at 20:00 Lorazepam (Ativan) 1 mg Q4 PRN IV AGITATION/ANXIETY; Start 01/18/17 at 20:00 Lisinopril (Zestril) 2.5 mg DAILY PO Last administered on 01/20/17 09:10; Admin Dose 2.5 MG; Start 01/20/17 at 09:00 Aspirin 81 mg 81 mg DAILY PO Last administered on 01/21/17 09:50; Admin Dose 81 MG; Start 01/21/17 at 09:00 Multivitamins/ Thiamine HCl/ Sodium Chloride (Mvi Adult/ Vitamin B1/NS) 1,011 ml @ 125 mls/hr DAILY@09 IVPB Last administered on 01/21/17 09:50; Admin Dose 125 MLS/HR; Start 01/21/17 at 08:35 Potassium Chloride (Klor-Con 10) 10 meq DAILY PO ; Start 01/21/17 at 15:00 Carvedilol 3.125 mg 3.125 mg BID PO ; Start 01/21/17 at 21:00 Sodium Chloride (NS) 1,000 ml @ 75 mls/hr [id number] IV ; Start 01/22/17 at 00:00 CHUCHO KATE Jan 21, 2017 18:10
[2017-01-22] VITALS (29 sets, daily range): BP systolic 109–140; BP diastolic 60–88; PULSE 54–106; RESP 17–18
[2017-01-22] MEDS: SOD CHLORIDE 0.9% 1,000 ML IV SCH ×2 (00:33→13:20)
[2017-01-22] MEDS: LEVALBUTEROL (NEB) 0.63 MG/3 ML AMP HHN SCH ×4 (01:00→13:28)
[2017-01-22] MEDS: FUROSEMIDE 20 MG INJ IV SCH (05:47)
[2017-01-22] MEDS ORDERED: MIDAZOLAM 1 MG/ML 2 ML INJ ONE (07:09)
[2017-01-22] MEDS ORDERED: VERAPAMIL 5 MG INJ ONE (07:09)
[2017-01-22] MEDS ORDERED: FENTAnyl 50 MCG/ML VIAL ONE (07:09)
[2017-01-22] MEDS ORDERED: LIDOCAINE 1% (MDV) 20 ML INJ ONE (07:09)
[2017-01-22] MEDS ORDERED: NITROGLYCERIN (IC) 100 MCG/ML INJ ONE (07:09)
[2017-01-22] MEDS ORDERED: IODIXANOL LOCM 100 ML BTL ONE (07:09)
[2017-01-22] MEDS ORDERED: SOD CHLORIDE 0.9% 1,000 ML IV SCH (08:27)
--- NOTE | 2017-01-22 08:36 | OPR ---
Date/Time of Note Date/Time of Note DATE: 01/22/17 TIME: 08:29 Operative Report Procedure Date: Jan 22, 2017 Preoperative Diagnosis cardiomyopathy, CAD by cardiac CT suggesting 70% mid LAD disease. Postoperative Diagnosis cardiomyopathy, nonobstructive CAD Surgeon see signature line School Year Nanny none Anesthesia Type: moderate sedation Estimated Blood Loss: minimal Transfusion none Specimen none Grafts/Implants none Complications none Procedure Description Procedure Date: 01/22/2017 Teasel Setter/surgeon:Isaias Collier MD. Procedures Performed: 1)Left heart catheterization with selective left and right coronary angiography. 2)Left ventricle angiography Pre-operative Diagnosis:cardiomyopathy, CAD with cardiac CT showing possible 70 % LAD disease Post-operative Diagnosis:cardiomyopathy, nonobstructive CAD Indications:56 yo M who presented with symptoms consistent with CHF and was also found to have afib with RVR. His EF was 40-45% so a cardiac CT was done showing pssible 70% disease of the LAD for which cardiac cath was planned. Description of Procedure: After informed consent, the patient was brought to the cardiac catheterization lab. The procedure site was prepped and draped in usual manner. The patient was premedicated with versed 1 mg and fentanyl 50 mcg. 2 mL lidocaine was injected into the right wrist. Next using the posterior wall technique, the 6/ 5 [place]ian sheath was inserted into the right radial artery. Next using the JL3.5 and JR4, selective angiography of the left and right coronary arteries were obtained. The pigtail was then advanced into the ventricle and hemodynamics obtained. Left ventricle angiography was obtained. Next all equipment was removed and hemostasis was obtained by TR band. Findings: Anatomy/Hemodynamics: Left main:normal LAD:mid 40% eccentric lesion Diagonal:normal Circumflex: normal Obtuse marginal:normal RCA:20% plaquing PDA:normal PLV:normal LV angiography: EF 45%, hypokinesis of the mid-distal anterolateral wall LV-Ao:no gradient LVEDP:20 mmHg Estimated blood loss<10 mL. Specimen: none Grafts/implants: none Complications: none Assessment: Nonobstructive CAD Cardiomyopathy Afib Plan: -medical management including ASA, statin, BB, ACEI ISAIAS COLLIER Jan 22, 2017 08:36
--- NOTE | 2017-01-22 08:36 | OPR ---
Date/Time of Note Date/Time of Note DATE: 01/22/17 TIME: 08:29 Operative Report Procedure Date: Jan 22, 2017 Preoperative Diagnosis cardiomyopathy, CAD by cardiac CT suggesting 70% mid LAD disease. Postoperative Diagnosis cardiomyopathy, nonobstructive CAD Surgeon see signature line Order Department Supervisor none Anesthesia Type: moderate sedation Estimated Blood Loss: minimal Transfusion none Specimen none Grafts/Implants none Complications none Procedure Description Procedure Date: 01/22/2017 Tire Classifier/surgeon:Isaias Collier MD. Procedures Performed: 1)Left heart catheterization with selective left and right coronary angiography. 2)Left ventricle angiography Pre-operative Diagnosis:cardiomyopathy, CAD with cardiac CT showing possible 70 % LAD disease Post-operative Diagnosis:cardiomyopathy, nonobstructive CAD Indications:56 yo M who presented with symptoms consistent with CHF and was also found to have afib with RVR. His EF was 40-45% so a cardiac CT was done showing pssible 70% disease of the LAD for which cardiac cath was planned. Description of Procedure: After informed consent, the patient was brought to the cardiac catheterization lab. The procedure site was prepped and draped in usual manner. The patient was premedicated with versed 1 mg and fentanyl 50 mcg. 2 mL lidocaine was injected into the right wrist. Next using the posterior wall technique, the 6/ 5 ivorian sheath was inserted into the right radial artery. Next using the JL3.5 and JR4, selective angiography of the left and right coronary arteries were obtained. The pigtail was then advanced into the ventricle and hemodynamics obtained. Left ventricle angiography was obtained. Next all equipment was removed and hemostasis was obtained by TR band. Findings: Anatomy/Hemodynamics: Left main:normal LAD:mid 40% eccentric lesion Diagonal:normal Circumflex: normal Obtuse marginal:normal RCA:20% plaquing PDA:normal PLV:normal LV angiography: EF 45%, hypokinesis of the mid-distal anterolateral wall LV-Ao:no gradient LVEDP:20 mmHg Estimated blood loss<10 mL. Specimen: none Grafts/implants: none Complications: none Assessment: Nonobstructive CAD Cardiomyopathy Afib Plan: -medical management including ASA, statin, BB, ACEI ISAIAS COLLIER Jan 22, 2017 08:36
--- NOTE | 2017-01-22 08:36 | OPR ---
Date/Time of Note Date/Time of Note DATE: 01/22/17 TIME: 08:29 Operative Report Procedure Date: Jan 22, 2017 Preoperative Diagnosis cardiomyopathy, CAD by cardiac CT suggesting 70% mid LAD disease. Postoperative Diagnosis cardiomyopathy, nonobstructive CAD Surgeon see signature line Skilled Laborer none Anesthesia Type: moderate sedation Estimated Blood Loss: minimal Transfusion none Specimen none Grafts/Implants none Complications none Procedure Description Procedure Date: 01/22/2017 Manager Community Development/surgeon:Isaias Collier MD. Procedures Performed: 1)Left heart catheterization with selective left and right coronary angiography. 2)Left ventricle angiography Pre-operative Diagnosis:cardiomyopathy, CAD with cardiac CT showing possible 70 % LAD disease Post-operative Diagnosis:cardiomyopathy, nonobstructive CAD Indications:56 yo M who presented with symptoms consistent with CHF and was also found to have afib with RVR. His EF was 40-45% so a cardiac CT was done showing pssible 70% disease of the LAD for which cardiac cath was planned. Description of Procedure: After informed consent, the patient was brought to the cardiac catheterization lab. The procedure site was prepped and draped in usual manner. The patient was premedicated with versed 1 mg and fentanyl 50 mcg. 2 mL lidocaine was injected into the right wrist. Next using the posterior wall technique, the 6/ 5 mexican sheath was inserted into the right radial artery. Next using the JL3.5 and JR4, selective angiography of the left and right coronary arteries were obtained. The pigtail was then advanced into the ventricle and hemodynamics obtained. Left ventricle angiography was obtained. Next all equipment was removed and hemostasis was obtained by TR band. Findings: Anatomy/Hemodynamics: Left main:normal LAD:mid 40% eccentric lesion Diagonal:normal Circumflex: normal Obtuse marginal:normal RCA:20% plaquing PDA:normal PLV:normal LV angiography: EF 45%, hypokinesis of the mid-distal anterolateral wall LV-Ao:no gradient LVEDP:20 mmHg Estimated blood loss<10 mL. Specimen: none Grafts/implants: none Complications: none Assessment: Nonobstructive CAD Cardiomyopathy Afib Plan: -medical management including ASA, statin, BB, ACEI ISAIAS COLLIER Jan 22, 2017 08:36
--- NOTE | 2017-01-22 11:35 | PN ---
Date/Time of Note Date/Time of Note DATE: 01/22/17 TIME: 11:34 Assessment/Plan VTE Prophylaxis VTE Prophylaxis Intervention: other Lines/Catheters IV Catheter Type (from Nrsg): Peripheral IV Urinary Cath still in place: No Assessment/Plan Chief Complaint/Hosp Course 1. Paroxysmal A. fib-rate now controlled Patient will be started on Coumadin after heart cath as patient's insurance does not cover novel anticoagulants Cardiology consultation appreciated 2. Cardiomyopathy with an EF of 40-45% likely secondary to alcohol abuse CT coronary angiogram shows 70% stenosis in the LAD, plan is for heart cath today Beta-david and ROLAND inhibitor held secondary to hypotension 3. Cardiac pause 2 Patient had 2 pauses 2 nights ago Follow-up with cardiology recommendations, monitor on telemetry 4. EtOH abuse Cessation advised 5. Recent left total knee arthroplasty Continue aspirin for DVT prophylaxis 6. Hyponatremia IV fluids with normal saline 7. Left lower extremity swelling Ultrasound arterial and venous were negative Prophylaxis: Xarelto then will be Coumadin after heart cath Problems: Subjective 24 Hr Interval Summary Constitutional: no complaints Exam/Review of Systems Vital Signs Vitals Vital Signs Date Time Temp Pulse Resp B/P Pulse Ox O2 Delivery O2 Flow Rate FiO2 01/22/17 09:46 60 17 132/69 99 Room Air 01/22/17 08:40 98.2 01/21/17 16:39 21 Intake and Output 01/21/17 01/21/17 01/22/17 15:00 23:00 07:00 Intake Total 750 ml 1300 ml Output Total 700 ml 550 ml Balance 50 ml 750 ml Exam Constitutional: alert, oriented Respiratory: clear to auscultation Cardiovascular: regular rate and rhythm Gastrointestinal: soft, No distended Musculoskeletal: nl extremities to inspection Results Result Diagram: 01/20/17 0845 01/20/17 0845 Medications Medications Current Medications Ondansetron HCl (Zofran Inj) 4 mg Q6H PRN IV NAUSEA AND/OR VOMITING; Start at 20:00 Acetaminophen (Tylenol Tab) 650 mg Q6H PRN PO PAIN LEVEL 1-3 OR FEVER; Start 01/18/17 at 20:00 Acetaminophen/ Hydrocodone Bitart ([place] (5/325)) 1 tab Q6H PRN PO MODERATE PAIN LEVEL 4-6 Last administered on 01/21/17t 18:10; Admin Dose 1 TAB; Start 01/18/17 at 20:00 Morphine Sulfate (morphine) 2 mg Q4H PRN IV SEVERE PAIN LEVEL 7-10 Last administered on 01/19/17 07:43; Admin Dose 2 MG; Start 01/18/17 at 20:00 Docusate Sodium (Colace) 100 mg Q12H PRN PO CONSTIPATION; Start 01/18/17 at 20 :00 Magnesium Hydroxide (Milk Of Mag) 30 ml DAILY PRN PO CONSTIPATION; Start 01/18 at 20:00 Zolpidem Tartrate (Ambien) 5 mg QHS PRN PO SLEEP; Start 01/18/17 at 20:00 Lorazepam (Ativan) 1 mg Q4 PRN IV AGITATION/ANXIETY; Start 01/18/17 at 20:00 Lisinopril (Zestril) 2.5 mg DAILY PO Last administered on 01/20/17 09:10; Admin Dose 2.5 MG; Start 01/20/17 at 09:00 Aspirin 81 mg 81 mg DAILY PO Last administered on 01/21/17 09:50; Admin Dose 81 MG; Start 01/21/17 at 09:00 Multivitamins/ Thiamine HCl/ Sodium Chloride (Mvi Adult/ Vitamin B1/NS) 1,011 ml @ 125 mls/hr DAILY@09 IVPB Last administered on 01/21/17 09:50; Admin Dose 125 MLS/HR; Start 01/21/17 at 08:35 Potassium Chloride (Klor-Con 10) 10 meq DAILY PO Last administered on 18:01; Admin Dose 10 MEQ; Start 01/21/17 at 15:00 Carvedilol 3.125 mg 3.125 mg BID PO Last administered on 01/21/17 22:17; Admin Dose 3.125 MG; Start 01/21/17 at 21:00 Sodium Chloride 1,000 ml @ 75 mls/hr [id number] IV Last administered on 00:33; Admin Dose 75 MLS/HR; Start 01/22/17 at 00:00 Sodium Chloride (NS) 1,000 ml @ 75 mls/hr [id number] IV ; Start 01/22/17 at 08:27 ; Stop 01/22/17 at 13:26 CHUCHO KATE Jan 22, 2017 11:35
[2017-01-22] MEDS: ASPIRIN (EC) 81 MG TAB PO SCH (12:13)
[2017-01-22] MEDS: HYDROCODONE/APAP (5/325) TAB PO PRN (12:13)
[2017-01-22] MEDS: POTASSIUM CHLORIDE (SR) 10 MEQ TAB PO SCH (12:13)
[2017-01-22] MEDS: LISINOPRIL 5 MG TAB PO SCH (12:14)
[2017-01-22] MEDS: MULTIVITAMINS 10 ML, THIAMINE 100 MG in SOD CHLORIDE 0.9% 1,000 ML IVPB SCH (12:17)
--- NOTE | 2017-01-22 14:39 | CONS ---
Date/Time of Note Date/Time of Note DATE: 01/22/17 TIME: 14:31 Assessment/Plan Assessment/Plan Chief Complaint/Hosp Course Assessment: Nonischemic cardiomyopathy, LVEF 40-45% - new diagnosis, likely alcoholic etiology Nonobstructive coronary artery disease - noted on coronary angiography 2016 Acute on chronic systolic heart failure - LVEDP 20 on cardiac catheterization Chronic atrial fibrillation - now rate controlled Alcohol abuse - advised cessation Recommendations: -change Lasix to 40mg PO daily -increase lisinopril to 5mg daily -continue carvedilol 3.125mg BID (had bradycardia and ~4 second pauses while on higher doses) -discontinue aspirin -start on warfarin with goal INR 2-3 (novel oral anticoagulants non-formulary on patient's insurance) -stable for discharge from cardiac standpoint, will need outpatient warfarin management and cardiology follow up Problems: Consultation Date/Type/Reason Admit Date/Time Jan 18, 2017 at 18:34 Type of Consultation: Cardiology 24 HR Interval Summary Free Text/Dictation Coronary angiography today showed nonobstructive coronary artery disease. Patient doing well post-procedure. Right radial artery access site intact. Detailed Summary Additional Comments 14 point review of systems without changes. Exam/Review of Systems Vital Signs Vitals Vital Signs Date Time Temp Pulse Resp B/P Pulse Ox O2 Delivery O2 Flow Rate FiO2 01/22/17 13:29 67 18 97 21 01/22/17 12:01 98.2 133/74 01/22/17 10:36 Room Air Intake and Output 01/21/17 01/21/17 01/22/17 15:00 23:00 07:00 Intake Total 750 ml 1300 ml Output Total 700 ml 550 ml Balance 50 ml 750 ml Exam Constitutional: alert, well developed Psych: nl mood/affect, no complaints Head: atraumatic, normocephalic Eyes: nl conjunctiva, nl lids ENMT: nl external ears & nose, nl nasal mucosa & septum Neck: non-tender, supple Respiratory: clear to auscultation Cardiovascular: irregular rhythm Gastrointestinal: non-tender, soft Musculoskeletal: nl extremities to inspection Extremities: edema (trace bilateral lower extremity), No clubbing, No cyanosis Neurological: nl mental status, nl speech Skin: nl turgor Results Result Diagram: 01/22/17 1406 01/20/17 0845 Results 24 hrs Laboratory Tests Test 01/22/17 14:06 White Blood Count 3.7 L Red Blood Count 3.02 L Hemoglobin 10.7 L Hematocrit 31.3 L Mean Corpuscular Volume 103.6 H Mean Corpuscular Hemoglobin 35.4 H Mean Corpuscular Hemoglobin Concent 34.2 Red Cell Distribution Width 14.1 Platelet Count 174 # Mean Platelet Volume 10.1 Neutrophils % 49.8 Lymphocytes % 28.6 Monocytes % 18.6 H Eosinophils % 2.2 Basophils % 0.5 Nucleated Red Blood Cells % 0.0 Neutrophils # 1.8 Lymphocytes # 1.1 Monocytes # 0.7 Eosinophils # 0.1 Basophils # 0.0 Nucleated Red Blood Cells # 0.0 Medications Medications Current Medications Ondansetron HCl (Zofran Inj) 4 mg Q6H PRN IV NAUSEA AND/OR VOMITING; Start at 20:00 Acetaminophen (Tylenol Tab) 650 mg Q6H PRN PO PAIN LEVEL 1-3 OR FEVER; Start 01/18/17 at 20:00 Acetaminophen/ Hydrocodone Bitart ([place] (5/325)) 1 tab Q6H PRN PO MODERATE PAIN LEVEL 4-6 Last administered on 01/22/17 12:13; Admin Dose 1 TAB; Start 01/18/17 at 20:00 Morphine Sulfate (morphine) 2 mg Q4H PRN IV SEVERE PAIN LEVEL 7-10 Last administered on 01/19/17 07:43; Admin Dose 2 MG; Start 01/18/17 at 20:00 Docusate Sodium (Colace) 100 mg Q12H PRN PO CONSTIPATION; Start 01/18/17 at 20 :00 Magnesium Hydroxide (Milk Of Mag) 30 ml DAILY PRN PO CONSTIPATION; Start 01/18 at 20:00 Zolpidem Tartrate (Ambien) 5 mg QHS PRN PO SLEEP; Start 01/18/17 at 20:00 Lorazepam (Ativan) 1 mg Q4 PRN IV AGITATION/ANXIETY; Start 01/18/17 at 20:00 Lisinopril (Zestril) 2.5 mg DAILY PO Last administered on 01/22/17 12:14; Admin Dose 2.5 MG; Start 01/20/17 at 09:00 Aspirin 81 mg 81 mg DAILY PO Last administered on 01/22/17 12:13; Admin Dose 81 MG; Start 01/21/17 at 09:00 Multivitamins/ Thiamine HCl/ Sodium Chloride (Mvi Adult/ Vitamin B1/NS) 1,011 ml @ 125 mls/hr DAILY@09 IVPB Last administered on 01/22/17 12:17; Admin Dose 125 MLS/HR; Start 01/21/17 at 08:35 Potassium Chloride (Klor-Con 10) 10 meq DAILY PO Last administered on 12:13; Admin Dose 10 MEQ; Start 01/21/17 at 15:00 Carvedilol 3.125 mg 3.125 mg BID PO Last administered on 01/22/17 12:14; Admin Dose 3.125 MG; Start 01/21/17 at 21:00 Sodium Chloride (NS) 1,000 ml @ 75 mls/hr [id number] IV Last administered on 00:33; Admin Dose 75 MLS/HR; Start 01/22/17 at 00:00 WOOD MARMOLEJO MD Jan 22, 2017 14:39
[2017-01-22] MEDS ORDERED: COU5 PO (14:57)
[2017-01-22] MEDS ORDERED: FURO40TA4 PO (14:57)
[2017-01-22] MEDS ORDERED: LISI-313 PO (14:57)
[2017-01-22] MEDS ORDERED: CARV3.1260 PO (14:57)
[2017-01-22] MEDS ORDERED: FUROSEMIDE 40 MG TAB PO SCH (15:00)
[2017-01-22] MEDS ORDERED: WARFARIN 5 MG TAB PO SCH (17:00)
[2017-01-23] MEDS ORDERED: LISINOPRIL 5 MG TAB PO SCH (09:00)
--- NOTE | 2017-01-23 12:55 | DS ---
Date/Time of Note Date/Time of Note DATE: 01/23/17 TIME: 12:46 Discharge Summary Admission/Discharge Info Admit Date/Time Jan 18, 2017 at 18:34 Discharge Date/Time Jan 22, 2017 at 16:30 Discharge Diagnosis 1. Paroxysmal A. fib-rate now controlled DC with Coumadin and Coreg 2. Cardiomyopathy with an EF of 40-45% secondary to alcohol abuse Heart cath did not show any significant lesions and patient was diagnosed with nonischemic cardiomyopathy DC with beta-david and ROLAND inhibitor, decreased beta-david dosage secondary to two 4 second pauses 3. Cardiac pause 2 Decreased Coreg dose per cardiology recommendations 4. EtOH abuse Cessation advised 5. Recent left total knee arthroplasty Continue aspirin for DVT prophylaxis 6. Hyponatremia Status post IV fluids with normal saline 7. Left lower extremity swelling Ultrasound arterial and venous were negative Patient Condition: Good Hospital Course Patient is a 56-year-old man with history of alcohol abuse as well as recent left total knee arthroplasty, patient was at same-day surgery where he was being evaluated today for possible bilateral lower extremity arterial ischemia as he was having complaints of recent left knee swelling and discomfort. At same -day surgery patient reported having palpitations and was found to be in A. fib with RVR, patient was given diltiazem IV 1 and converted to sinus rhythm but patient went back into A. fib. Of note ultrasound arterial as well as venous were normal. Cardiology was consulted and echo showed cardiomyopathy with an EF of 40-45%, a CTA of the coronary arteries was done which showed questionable occlusion, heart cath was done but showed no significant lesions and patient was diagnosed with nonischemic cardiomyopathy likely secondary to alcohol abuse. Cessation was advised, patient's heart rate was stable on Coreg, of note patient did have two 4 second pauses one night and his Coreg dose was decreased. Patient was started on Coumadin as his insurance does not cover any of the novel anticoagulants, patient was felt to be stable for DC per cardiology , patient was strongly urged to stop drinking and stated that he understood, on the day of discharge patient vitals labs and physical exam are stable and no further acute complaints and questions were answered. Home Meds Active Scripts Furosemide* (Furosemide*) 40 Mg Tablet, 40 MG PO DAILY, #30 TAB Prov:CHUCHO KATE 01/22/17 Lisinopril* (Lisinopril*) 5 Mg Tablet, 5 MG PO DAILY, #60 TAB 1 Refill Prov:CHUCHO KATE 01/22/17 Carvedilol* (Carvedilol*) 3.125 Mg Tablet, 3.125 MG PO BID, #60 TAB 1 Refill Prov:CHUCHO KATE 01/22/17 Warfarin Sod (Coumadin) 5 Mg Tab, 5 MG PO DAILY@17, #10 TAB Prov:CHUCHO KATE 01/22/17 Discontinued Reported Medications Aspirin (Low Dose Aspirin) 81 Mg Tablet., 81 MG PO DAILY, #30 TAB 01/18/17 Follow-up Plan FOLLOW UP WITH YOUR PRIMARY CARE PHYSICIAN IN 1-2 WEEKS, F/U WITH A COLLEGE TEACHER Primary Care Provider Not On Staff Doctor Time spent on discharge: > 30 minutes CHUCHO KATE Jan 23, 2017 12:55
== END 2017-01-22 16:30 | disposition home health service (06) | DRG 286 ==
LOC: E/R 15:18 → MS4 18:34
PROVIDERS: ADMIT Internal Medicine; ATTEND Internal Medicine
PROC: 4A023N7 Measurement of Cardiac Sampling and Pressure, Left Heart, Percutaneous Approach (ICD-10-PCS; 2017-01-22)
PROC: B215YZZ Fluoroscopy of Left Heart using Other Contrast (ICD-10-PCS; 2017-01-22)
PROC: B211YZZ Fluoroscopy of Multiple Coronary Arteries using Other Contrast (ICD-10-PCS; principal; 2017-01-22 07:30)
DX: I48.0 Paroxysmal atrial fibrillation (principal); I50.23 Acute on chronic systolic (congestive) heart failure; E87.1 Hypo-osmolality and hyponatremia; I42.6 Alcoholic cardiomyopathy; Z79.01 Long term (current) use of anticoagulants; I25.10 Atherosclerotic heart disease of native coronary artery without angina pectoris; I25.83 Coronary atherosclerosis due to lipid rich plaque; I48.92 Unspecified atrial flutter; R60.9 Edema, unspecified; Z79.02 Long term (current) use of antithrombotics/antiplatelets
CPT/HCPCS: 36415; 71010; 75571; 75574; 80048; 80053; 80061; 83036; 83690; 83735; 84100; 84439; 84443; 84481; 84484; 85025; 85610; 93005; 93306; 93458; 93922; 93970; 94640; 94664; 96374; 97162; J1940; C1887; J1956; J2250; J2270; J3010; J3411; J3475; J7030; J7040; Q9967

== ENCOUNTER → 2017-01-18 | Day surgery (SDC) | payer OTHER ==
[~2017-01-18] VITALS: Ht 188 cm; Wt 99.5 kg
[~2017-01-18] MED LIST: ASPI-664 PO; CARV3.1260 PO; COU5 PO; FURO40TA4 PO; LISI-313 PO; RIVA20TA PO
[2017-01-18 13:47] VITALS: Ht 188 cm; Wt 99.5 kg
[2017-01-18 14:00] VITALS: BP 115/84; PULSE 144; RESP 16
[2017-01-18 14:30] VITALS: BP 117/79; PULSE 142; RESP 17
== END | disposition home or self-care (01) ==
LOC: SDS 01-12 14:38
PROVIDERS: ATTEND Thoracic Surgery (Cardiothoracic Vascular Surgery)
DX: R22.40 Localized swelling, mass and lump, unspecified lower limb (principal); Z53.9 Procedure and treatment not carried out, unspecified reason
CPT/HCPCS: 80048; 85025; 85610; 85730